=== PATIENT | female | born 1945 | race Caucasian/White ===

== ENCOUNTER 2016-07-05 16:10 | Emergency (ER) | payer MEDICARE, OTHER ==
[~2016-07-05] VITALS: Ht 165.1 cm; Wt 102.3 kg
[~2016-07-05 16:10] MED LIST: ALBU18HF INH; ESOM40CA41 PO; FERR325T39 PO; GLIM1TAB PO; INSU100V4 SUBQ; INSU200I SQ; LEVO100T97 PO; LORA10CA PO; LOSA100T29 PO; METF500T7 PO; OXYC5CAP4 PO; PRAM0.5T3 PO; TRAM50TA2 PO; [UNRECOGNIZED DRUG - CODE] MC
[2016-07-05 16:32] VITALS: BP 175/73; PULSE 78; RESP 20; O2SAT 96
[2016-07-05] MEDS ORDERED: diphenhydrAMINE 25 mg Capsule PO ONE (18:59)
[2016-07-05 19:32] VITALS: BP 161/53; PULSE 81; RESP 17; O2SAT 97
[2016-07-05 19:55] LABS: Magnesium 1.6 mg/dL (1.6-2.6)
[2016-07-05 20:03] LABS: Mean Corpuscular Hemoglobin 31.8 pg (27.0-35.0); Mean Corpuscular Volume 94.8 fL (81-100)
[2016-07-05 20:04] LABS: BASOPHILS % (AUTO) 1 % (0-3); EOSINOPHILS % (AUTO) 7 % (0-5); MONOCYTES % (AUTO) 11 % (4-12); NEUTROPHILS % (AUTO) 63 % (40-74); Platelet Count 126 bil/L (150-400)
--- NOTE | 2016-07-05 21:05 | ED.REPORT ---
HPI-Extremity Problem Lower Date of Service July 05, 2016 ED Provider: Mario Baeza PA-C Vanessa is a 71-year-old female with a history of hypothyroidism, type II diabetes, hypertension, bilateral total knee arthroplasty and DVT presenting with the chief complaint of right calf pain. Referred by her physical therapist have concern for DVT. Patient reports that she has had intermittent leg pain for quite some time but has become more constant and severe since she underwent a colonoscopy several days ago. Reports increased swelling in the right leg. Pain is located in her right calf sometimes radiate into her knee and hip. Admits to dyspnea on exertion which is at baseline for her asthma present for years. She denies tachycardia, heart palpitations, chest pain, hemoptysis, fever, chills, malaise. She does not use anticoagulants.. Nursing Notes Stated Complaint: POSS CLOT IN LEFT LEG Chief Complaint: Extremity Trauma Nursing Notes Reviewed: Yes Allergies: Coded Allergies: Wheat (Verified Allergy, Severe, rash, 10/16/15) gluten (Verified Allergy, Severe, Rash/ irritable bowel, 10/16/15) nadolol (Verified Allergy, Severe, WHEEZING/ASTHMA, 11/07/15) propoxyphene (Verified Allergy, Severe, 10/16/15) Hallucinations atorvastatin (Verified Allergy, Intermediate, myalgia, 11/06/15) gabapentin (Verified Allergy, Mild, dizziness, 11/06/15) clarithromycin (Verified Allergy, Unknown, 10/16/15) Pt unsure of reaction to this medication naproxen (Verified Allergy, Unknown, HALLUCINATES, 10/16/15) rofecoxib (Verified Allergy, Unknown, 10/16/15) Sulfa (Sulfonamide Antibiotics) (Verified Adverse Reaction, Intermediate, itching, 10/16/15) acetaminophen (Verified Adverse Reaction, Intermediate, insomnia, 10/16/15) meperidine (Verified Adverse Reaction, Intermediate, FEELS "BUGS", 10/16/15 ) morphine (Verified Adverse Reaction, Intermediate, FEELS "BUGS", 10/16/15) clindamycin (Verified Adverse Reaction, Mild, n/v, 11/06/15) lisinopril (Verified Adverse Reaction, Mild, cough, 11/06/15) pravastatin (Verified Adverse Reaction, Mild, leg and arm cramps, 11/06/15) pregabalin (Verified Adverse Reaction, Mild, weird dreams, 11/06/15) simvastatin (Verified Adverse Reaction, Mild, myalgia, 11/06/15) Scheduled Aloe Vera [place] [employer] Gel Extract (Aloe Vera) 5 Gm Powder 5 GM MC DAILY Esomeprazole Magnesium (Nexium) 40 Mg Capsule.dr 40 MG PO DAILY Ferrous Sulfate (Iron) 325 Mg Tablet 325 MG PO DAILY Glimepiride (Glimepiride) 1 Mg Tablet 1 MG PO DAILYAC Insulin Detemir (Levemir U100 Insulin Vial) 100 Unit/1 Ml Vial 75 UNIT SUBQ QPM- INSULIN Insulin Lispro (Humalog Kwikpen) 200 Unit/Ml (3 Ml) Insuln.pen 35 UNIT SQ TIDWM Levothyroxine (Synthroid) 100 Mcg Tablet 200 MCG PO DAILYAC Loratadine (Claritin) 10 Mg Capsule 10 MG PO DAILY Losartan Potassium (Losartan Potassium) 100 Mg Tablet 100 MG PO DAILY Metformin ER (Metformin ER) 500 Mg Tablet 500 MG PO BID Pramipexole Dihydrochloride (Mirapex) 0.5 Mg Tablet 0.5 MG PO HS Scheduled PRN Albuterol Sulfate (Ventolin HFA Inhaler) 200 Puff/18 Gm Inhaler 2 PUFF INH Q4 PRN PRN For Wheezing Tramadol (Tramadol) 50 Mg Tablet 50 MG PO Q4H PRN PRN For Pain oxyCODONE (oxyCODONE) 5 Mg Capsule 5-10 MG PO DAILY PRN PRN For Pain General Time Seen by MD: 19:12 Chief Complaint Leg injury right Past Medical History Past Medical History Notes: PCP: Dr. Ferrell Past Medical History 1. Hypothyroidism. 2. Type 2 diabetes mellitus. 3. Hypertension. 4. Recent abdominal abscess status post incision and drainage. 5. History of breast cancer status post mastectomy. 6. Pneumonia Reports: COPD, Cancer, Diabetes mellitus, Hypertension Past Surgical History 1. Left mastectomy for breast cancer and reconstruction with donor site from abdomen. 2. Knee replacement in 2009. 3. Laparoscopic cholecystectomy. 4. Abdominal abscess with incision and drainage in December 2010. FINAL DIAGNOSIS of Biopsies on 08/30/14: 1). Antrum, biopsy: A). reactive gastropathy alterations; antral mucosa. B). no H. pylori (immunostain). C). no intestinal metaplasia, dysplasia or malignancy. 2). Gastric body, biopsy: A). features consistent With fundic gland polyp. B). no H. pylori (immunostain). C). no intestinal metaplasia, dysplasia or malignancy. 3). Colon polyps x7, biopsy: A). tubular adenoma in 5/7 fragments. B). unremarkable colonic mucosa in 2/7 fragments. Smoking History Former Smoker Social History Alcohol Use: Denies alcohol use Review of Systems Review of Systems Note: Negative unless stated otherwise in history of present illness Physical Exam General: Well appearing, well developed, well nourished, no acute distress. Legs: Right calf diameter roughly 3 cm greater than the left. Right calf tenderness. 2+ pitting edema bilaterally. DP and PT pulses 2+ bilaterally. Right knee: Negative redness, swelling, heat. Full range of motion. Head: Atraumatic, normocephalic. Eyes: No scleral icterus or injection. No discharge. Vision grossly intact. ENT: Voice clear, hearing grossly intact. Respiratory: No respiratory distress, no increased work of breathing. Speaks in complete sentences. Skin: Warm and dry. Neurological: Grossly nonfocal. Psychological: alert and oriented. Speech appropriate, linear and logical. Behavior appropriate. Initial Vital Signs Vital Signs (First) Date Time Temp Pulse Resp B/P Pulse Ox O2 Delivery O2 Flow Rate FiO2 07/05/16 16:32 36.6 78 20 175/73 96 Room Air Initial VS: Vital signs abnormal (elevated blood pressure) Interpretation & Diagnostics Lab Results Interpretation Result Diagram: 07/05/16 1730 07/05/16 1730 Test 07/05/16 17:30 07/05/16 19:48 White Blood Count 5.7th/mm3 (3.8-10.1) Red Blood Count 3.68mil/mm3 (3.90-5.20) Hemoglobin 11.7g/dL (12.0-15.6) Hematocrit 34.9% (35.0-46.0) Mean Corpuscular Volume 94.8fL (81-100) Mean Corpuscular Hemoglobin 31.8pg (27.0-35.0) Mean Corpuscular Hemoglobin Concent 33.5% (32.0-37.0) Red Cell Distribution Width 14.6% (12.3-15.4) Platelet Count 126bil/L (150-400) Neutrophils (%) (Auto) 63% (40-74) Lymphocytes (%) (Auto) 18% (14-46) Monocytes (%) (Auto) 11% (4-12) Eosinophils (%) (Auto) 7% (0-5) Basophils (%) (Auto) 1% (0-3) Prothrombin Time 10.7sec (8.1-12.5) Prothromb Time International Ratio 1.00ratio Sodium Level 136mEq/L (134-144) Potassium Level 4.0mEq/L (3.5-5.2) Chloride Level 101mEq/L (97-108) Carbon Dioxide Level 21mmol/L (18-29) Blood Urea Nitrogen 14mg/dL (8-27) Creatinine 0.81mg/dL (0.57-1.00) Estimat Glomerular Filtration Rate 99mL/min (>59) Glucose Level 125mg/dL (60-99) Calcium Level 9.9mg/dL (8.5-10.1) Magnesium Level 1.6mg/dL (1.6-2.6) Total Bilirubin 0.8mg/dL (0.0-1.2) Aspartate Amino Transf (AST/SGOT) 68U/L (0-50) Alanine Aminotransferase (ALT/SGPT) 36U/L (0-32) Alkaline Phosphatase 110U/L (25-165) Pro-B-Type Natriuretic Peptide 27.39pg/mL (0-301) Total Protein 8.1g/dL (6.4-8.4) Albumin 3.2g/dL (3.4-5.0) Hold Urine Received (Received) Re-Eval/Medical Decision Med Decision/Clinical Course 70-year-old female referred by her physical therapist out of concern for a possible DVT due to right calf pain. History of intermittent pain in her leg which became more severe and steady since having a colonoscopy several days ago. Right leg swelling noted. Denies increased shortness of breath, hemoptysis, chest pain. History of bilateral total knee arthroplasty. Physical examination reveals right calf roughly 37 years larger than the left, 2 + pitting edema, calf tenderness. Her knee does not appear red, swollen, warm. She is afebrile. CBC and CMP reveal no leukocytosis. Other minor abnormalities are near baseline and not thought to be clinically significant. Ultrasound is negative for DVT. At this point I am reassured that her leg pain is unlikely to cause by an immediately dangerous conditions such as DVT or a septic joint. I believe she is stable and safe to be discharged. I discussed these findings with the patient who is eager to be discharged to home. Denies primary care follow-up, provided emergency return precautions. Patient verbalizes understanding of and consented to the plan. Discharge & Departure Impression: Primary Impression: Right leg pain Disposition: Home Discharge Condition All VS Reviewed: Yes Condition: Stable Additional Instructions: Evaluation in the emergency department for leg pain includes history, physical examination and ultrasound, all of which are reassuring that the pain in her leg is not caused by immediately dangerous conditions such as a blood clot or infection. I believe you are stable and safe to be discharged to home. Follow-up with your primary care provider to further address the swelling in your legs. Return to emergency department for new or worsening symptoms including increasing pain, swelling, shortness of breath, dizziness, cough, chest pain. Referrals: Harleen Ferrell MD EDSupervising Provider for APC: Aramis Kilgore DO copies to: Harleen Ferrell MD, Seth PA-C July 05, 2016 21:05
[2016-07-05 21:26] VITALS: BP 150/66; PULSE 80; RESP 16; O2SAT 98
--- NOTE | 2016-07-05 21:54 | DRSVH ---
PROCEDURE: US VEINOUS LEG DUPLEX UNILATERAL, RIGHT INDICATIONS: RIGHT LEG PAIN TECHNIQUE: Real-time imaging, as well as color and pulse Doppler interrogation, were performed of the lower extr emity deep veins from the inguinal ligament to the popliteal fossa. COMPARISON: None. FINDINGS: The deep veins are normally compressible, and free of intraluminal thrombus. Color and pu lse Doppler demonstrate normal phasic intraluminal flow. There is normal augmentation response to di stal compression maneuver. IMPRESSION: 1. No evidence of deep venous thrombosis in the right lower extremity. Dictated by: Janusz Alvarez M.D. on 07/05/2016 at 21:52 Approved by: Janusz Alvarez M.D. on 07/05/2016 at 21:52
[2016-07-19] MEDS ORDERED: INSU200I SQ (09:37)
[2016-07-19] MEDS ORDERED: ALBU90AE IH (09:37)
[2016-07-19] MEDS ORDERED: TOLT2CAP8 PO (09:37)
[2016-07-19] MEDS ORDERED: DIPH25CA6 PO (09:37)
[2016-07-19] MEDS ORDERED: INSU100I13 SUBQ (09:37)
[2016-07-19] MEDS ORDERED: LEVO25TA5 PO (09:37)
[2016-07-19] MEDS ORDERED: HYDR50TA76 PO (09:37)
[2016-07-19] MEDS ORDERED: LEVO200T6 PO (09:37)
== END 2016-07-05 21:27 | disposition home or self-care (01) ==
LOC: SED 16:10
DX: M79.604 Pain in right leg (principal); I10 Essential (primary) hypertension; E11.9 Type 2 diabetes mellitus without complications; J44.9 Chronic obstructive pulmonary disease, unspecified; E03.9 Hypothyroidism, unspecified; Z79.4 Long term (current) use of insulin; Z79.84 Long term (current) use of oral hypoglycemic drugs; Z87.891 Personal history of nicotine dependence; Z88.1 Allergy status to other antibiotic agents; Z88.2 Allergy status to sulfonamides; Z88.5 Allergy status to narcotic agent; Z88.8 Allergy status to other drugs, medicaments and biological substances; Z91.018 Allergy to other foods

== ENCOUNTER 2016-11-19 10:22 | Inpatient (IN) | payer MEDICARE, OTHER ==
[~2016-11-19] VITALS: Ht 165.1 cm; Wt 107.3 kg
[2016-11-19] VITALS (8 sets, daily range): BP systolic 127–167; BP diastolic 57–68; PULSE 74–87; RESP 17–20; O2SAT 95–98
--- NOTE | 2016-11-19 10:16 | ED.REPORT ---
HPI-Stroke / CVA Nov 19, 2016 ED Provider: Faizan Carter Patient is a 71 year old female with a hx of HTN, breast cancer in remission, COPD, DVT, and DM who presents to the ED via EMS s/p she was found to be confused this morning by her . Per , pt ambulated independently to the kitchen this morning and was found with an increased tremor, generalized weakness, and was unable to answer questions or follow simple directions. Her last known normal is between [id number] last night. Per family, she did not experience a fall or obtain any injuries. Upon interview, pt complains of chest pain but denies SOB. Nursing Notes Stated Complaint: STROKE Nursing Notes Reviewed: Yes Allergies: Coded Allergies: Wheat (Verified Allergy, Severe, rash, 11/19/16) gluten (Verified Allergy, Severe, Rash/ irritable bowel, 11/19/16) nadolol (Verified Allergy, Severe, WHEEZING/ASTHMA, 11/19/16) propoxyphene (Verified Allergy, Severe, 11/19/16) Hallucinations atorvastatin (Verified Allergy, Intermediate, myalgia, 11/19/16) gabapentin (Verified Allergy, Mild, dizziness, 11/19/16) clarithromycin (Verified Allergy, Unknown, 11/19/16) Pt unsure of reaction to this medication naproxen (Verified Allergy, Unknown, HALLUCINATES, 11/19/16) rofecoxib (Verified Allergy, Unknown, 11/19/16) Sulfa (Sulfonamide Antibiotics) (Verified Adverse Reaction, Intermediate, itching, 11/19/16) acetaminophen (Verified Adverse Reaction, Intermediate, insomnia, 11/19/16) meperidine (Verified Adverse Reaction, Intermediate, FEELS "BUGS", 11/19/16 ) morphine (Verified Adverse Reaction, Intermediate, FEELS "BUGS", 11/19/16) clindamycin (Verified Adverse Reaction, Mild, n/v, 11/19/16) lisinopril (Verified Adverse Reaction, Mild, cough, 11/19/16) pravastatin (Verified Adverse Reaction, Mild, leg and arm cramps, 11/19/16) pregabalin (Verified Adverse Reaction, Mild, weird dreams, 11/19/16) simvastatin (Verified Adverse Reaction, Mild, myalgia, 11/19/16) Scheduled Aspirin (Aspirin) 81 Mg Tablet 81 MG PO BID (Reported) Esomeprazole Magnesium (Nexium) 40 Mg Capsule.dr 40 MG PO DAILY (Reported) Insulin Glargine (Lantus U100 Solostar Insulin Pen) 100 Unit/1 Ml Insuln.pen 80 UNIT SUBQ DAILY (Reported) Insulin Lispro (Humalog Kwikpen) 200 Unit/Ml (3 Ml) Insuln.pen 35 UNIT SQ TIDWM (Reported) Levothyroxine (Levothyroxine) 200 Mcg Tablet 200 MCG PO DAILY (Reported) In addition to 25mcg for a total of 225 mcg Levothyroxine (Levothyroxine) 25 Mcg Tablet 25 MCG PO DAILY (Reported) In addition to 200mcg for a total of 225 mcg Losartan Potassium (Losartan Potassium) 100 Mg Tablet 100 MG PO DAILY (Reported ) Pramipexole Dihydrochloride (Mirapex) 0.5 Mg Tablet 0.5-1 MG PO HS (Reported) Scheduled PRN Albuterol Sulfate (Proair Respiclick) 90 Mcg Aer.pow.ba 2 PUFFS IH Q4-6Hrs PRN PRN For Shortness of Breath (Reported) diphenhydrAMINE HCl (Benadryl) 25 Mg Capsule 25 MG PO HS PRN PRN (Reported) hydrOXYzine Hcl (HydrOXYzine Hcl) 25 Mg Tablet 25-50 MG PO Q4Hrs PRN PRN For Itching (Reported) oxyCODONE (oxyCODONE) 5 Mg Capsule 5-10 MG PO Q4Hrs PRN PRN For Pain (Reported) General Time Seen by Provider: 10:39 Chief Complaint Confusion Hx Obtained From: Patient, Spouse, Daughter Arrived By: Ambulance Time last known well [id number] on 11/18 Sudden in Onset?: Yes Context of Onset: During sleep Symptom Duration: Since onset Progression Since Onset: Unchanged Context: Immunizations Unknown Risk Factors )( TPA Administration/Criteria Stroke Thrombolytic Therapy : TPA Considered: Yes Neurologist Contacted: No TPA Administered Intravenously: No, not indicated (No lateralizing neurologic deficits, stroke not suspected dx ) NIH Stroke Scale Level of Consciousness: Not alert, arousable (1) Ask Month & Age: 0 questions right (2) Open/Close Eyes/Hand Senior Research Project Manager: Performs 0 tasks (2) Horizontal EO Movements: None (0) Facial Palsy: Normal symmetry (0) Right Arm Motor Drift (10s): Drift, hits bed (2) Left Arm Motor Drift (10s): Some effort v gravity (2) Right Leg Motor Drift (5s): Some effort v gravity (2) Left Leg Motor Drift (5s): Some effort v gravity (2) Limb Ataxia FNF/Heel-Lovett: No ataxia (0) Language Aphasia: Loss fluency ID matls (1) Dysarthria: Slurring intelligible (1) NIHSS Score: 15 Time NIHSS Performed: 10:46 Date NIHSS Performed: Nov 19, 2016 )( CVA Risk Stratification Age >60 Diabetes mellitus Hypertension Risk factors reviewed Past Medical History Past Medical History Notes: PCP: Dr. Ferrell Past Medical History 1. Hypothyroidism. 2. Type 2 diabetes mellitus. 3. Hypertension. 4. Recent abdominal abscess status post incision and drainage. 5. History of breast cancer status post mastectomy. 6. Pneumonia 7. DVT 8. MRSA 9. Non-alcoholic cirrhosis 10. DJD Reports: Asthma, COPD, Cancer, Diabetes mellitus, GERD, Hypertension Past Surgical History 1. Left mastectomy for breast cancer and reconstruction with donor site from abdomen. 2. Knee replacement x2 3. Laparoscopic cholecystectomy. 4. Abdominal abscess with incision and drainage in December 2010. FINAL DIAGNOSIS of Biopsies on 08/30/14: 1). Antrum, biopsy: A). reactive gastropathy alterations; antral mucosa. B). no H. pylori (immunostain). C). no intestinal metaplasia, dysplasia or malignancy. 2). Gastric body, biopsy: A). features consistent With fundic gland polyp. B). no H. pylori (immunostain). C). no intestinal metaplasia, dysplasia or malignancy. 3). Colon polyps x7, biopsy: A). tubular adenoma in 5/7 fragments. B). unremarkable colonic mucosa in 2/7 fragments. Reports: Cataract surgery, Hysterectomy Smoking History Former Smoker Social History Alcohol Use: Denies alcohol use Other Social History: Good social support Ambulatory Status Cane Review of Systems Constitutional: Reports: Weakness - generalized Respiratory: Denies: Shortness of breath Cardiovascular: Reports: Chest pain Neurologic: Reports: Confusion, Problem walking, Shaking Complete sys rev & neg: except as marked. Physical Exam Initial Vital Signs Vital Signs (First) Date Time Temp Pulse Resp B/P Pulse Ox O2 Delivery O2 Flow Rate FiO2 11/19/16 10:39 35.9 82 19 154/62 98 Room Air Initial VS: Reviewed, Vital signs normal General/Constitutional: Awake, Alert Head / Eyes: Atraumatic, Normocephalic, EOMI Neck: Supple Respiratory / Chest: Atraumatic, Breath sounds NL, Breath sounds = bilat, No respiratory distress Cardiovascular: Heart rate NL Mental Status: Positive: Confused Delirious, disoriented, dysconjugate gaze, face symmetric, symmetric profound weakness in upper and lower extremities Neuro otherwise non-focal Abdomen: Atraumatic, Soft, Non-tender Upper Extremity / MS: Atraumatic Lower Extremity / Pelvis / MS: Atraumatic Skin: Atraumatic, Color NL, No rash, Warm, Dry Interpretation & Diagnostics Lab Results Interpretation Result Diagram: 11/19/16 1030 11/19/16 1030 Test 11/19/16 10:30 11/19/16 11:41 11/19/16 11:50 White Blood Count 6.9th/mm3 (3.8-10.1) Red Blood Count 3.67mil/mm3 (3.90-5.20) Hemoglobin 11.5g/dL (12.0-15.6) Hematocrit 34.4% (35.0-46.0) Mean Corpuscular Volume 93.7fL (81-100) Mean Corpuscular Hemoglobin 31.3pg (27.0-35.0) Mean Corpuscular Hemoglobin Concent 33.4% (32.0-37.0) Red Cell Distribution Width 14.8% (12.3-15.4) Platelet Count 142bil/L (150-400) Neutrophils (%) (Auto) 66.4% (40-74) Lymphocytes (%) (Auto) 19.9% (14-46) Monocytes (%) (Auto) 10.4% (4-12) Eosinophils (%) (Auto) 2.5% (0-5) Basophils (%) (Auto) 0.7% (0-3) Erythrocyte Sedimentation Rate 68mm/hr (0-40) Prothrombin Time 10.8sec (8.1-12.5) Prothromb Time International Ratio 1.01ratio Activated Partial Thromboplast Time 26.0sec (22.8-33.0) Sodium Level 136mEq/L (134-144) Potassium Level 4.3mEq/L (3.5-5.2) Chloride Level 99mEq/L (97-108) Carbon Dioxide Level 22mmol/L (18-29) Blood Urea Nitrogen 24mg/dL (8-27) Creatinine 1.18mg/dL (0.57-1.00) Estimat Glomerular Filtration Rate 64mL/min (>59) Glucose Level 147mg/dL (60-99) Calcium Level 9.3mg/dL (8.5-10.1) Phosphorus Level 3.5mg/dL (2.5-4.9) Magnesium Level 1.8mg/dL (1.6-2.6) Total Bilirubin 0.7mg/dL (0.0-1.2) Aspartate Amino Transf (AST/SGOT) 47U/L (0-50) Alanine Aminotransferase (ALT/SGPT) 31U/L (0-32) Alkaline Phosphatase 100U/L (25-165) Troponin T 0.026ug/L (0.0-0.011) Pro-B-Type Natriuretic Peptide 14.57pg/mL (0-301) Total Protein 8.4g/dL (6.4-8.4) Albumin 3.4g/dL (3.4-5.0) Lipase 110U/L (13-60) Procalcitonin 0.14ng/mL (0.00-0.08) Urine Color Yellow (YELLOW) Urine Appearance Cloudy (CLEAR,HAZY) Urine pH 7.0 (5.0-8.0) Urine Specific Forbes 1.015 (1.003-1.035) Urine Protein Tracemg/dL (NEG,TRACE) Urine Glucose (UA) Negativemg/dL (NEGATIVE) Urine Ketones Negativemg/dL (NEGATIVE) Urine Occult Blood Negative (NEGATIVE) Urine Nitrite Positive (NEGATIVE) Urine Bilirubin Negative (NEGATIVE) Urine Urobilinogen 4.0mg/dL (NORMAL) Urine Leukocyte Esterase Negative (NEGATIVE) Urine RBC 0-2/hpf (0-2) Urine WBC 0-5/hpf (0-5) Urine Epithelial Cells Occasional/hpf (NONE-MOD) Urine Crystals None seen (NONE SEEN) Urine Bacteria Many/hpf (NONE-FEW) Urine Hyaline Casts None/lpf (NONE) Urine Granular Casts None seen (NONE SEEN) Urine Waxy Casts None seen (NONE SEEN) Urine Red Blood Cell Casts None seen (NONE SEEN) Urine White Blood Cell Casts None seen (NONE SEEN) Urine Mucus None seen (None Seen) Urine Trichomonas None seen (NONE SEEN) Urine Yeast None (NONE SEEN) Urinalysis Comment None Urine Culture Reflexed Indicated Lactic Acid Level 1.2mmol/L (0.4-2.0) ECG Interpretation ECG Interpretation: Sinus rate 84 LBBB, old Time: 10:56 Interpreted by: ED physician X-Ray Chest Interpretation Chest Xray Interpretation: IMPRESSION: Mild acute exacerbation of chronic CHF pattern. Dictated by: Ketan Weiss M.D. on 11/19/2016 at 12:54 Approved by: Ketan Weiss M.D. on 11/19/2016 at 12:54 View: Portable, 1 view Interpretation / Wet Read by: Interpret - Radiologist CT Head Interpretation IMPRESSION: No acute disease, no contraindication to TPA administration found. This information was personally called to the emergency room at 10:47 a.m. This study fulfills neurological imaging criteria for inclusion or exclusion of acute stroke therapies based on available published neurological guidelines. Dictated by: Ketan Weiss M.D. on 11/19/2016 at 10:44 Approved by: Ketan Weiss M.D. on 11/19/2016 at 10:54 Study: Head CT no contrast Interpretation / Wet Read by: Interpret - Radiologist, Discussed w radiologist Re-Eval/Medical Decision Med Decision/Clinical Course Not clear to me what the problem is here. Initially was received as "code stroke" but after initial assessment I thought this was not the most likely dx. based on the fact that her weakness was not lateralizing at all and diffuse and inconsistent. Initial w/up was not very helpful and I thought LP might be in order but the patient refused this. Will admit for obs to further elucidate the etiology of the sx. Re-Evaluation/Progress : Time of Eval: 13:29 )( Re-Eval Neurologic Exam: Alert Re-Evaluation/Progress Note: Rechecked pt who is becoming slightly more oriented. She denies pain. Discussed plan for LP. Patient denies LP. Spouse reports she has had a poor experience with a LP in the past. Discussed plan for admission. Patient understands and agrees with plan. All questions addressed at this time. Consultation : Referral / Consult Name: Castro Simpson MD Consulted With: Hospitalist Manager Willow: Accepts admit Counseled Regarding: Diagnosis, Lab results, Need for admission Patient Discharge & Departure Impression: Primary Impression: Acute delirium Disposition: ADMITTED TO HOSPITAL Discharge Condition All VS Reviewed: Yes Condition: Stable Referrals: Harleen Ferrell MD (PCP) Scribe Attestation Portions of this note were transcribed by Nickie Deshpande. I, Dr. Carter personally performed the history, physical exam and medical decision-making; I reviewed and confirmed the accuracy of the information in the transcribed note. Signed by: Chuck Lu, 11/19/16 copies to: Harleen Ferrell MD, Kirk H MD Nov 19, 2016 10:16 NICKIE DESHPANDE Nov 19, 2016 10:52
[~2016-11-19 10:22] MED LIST changes: -ALBU18HF INH; +ALBU90AE IH; +DIPH25CA6 PO; -FERR325T39 PO; -GLIM1TAB PO; +HYDR50TA76 PO; +INSU100I13 SUBQ; -INSU100V4 SUBQ; -LEVO100T97 PO; +LEVO200T6 PO; +LEVO25TA5 PO; -METF500T7 PO; +TOLT2CAP8 PO; -[UNRECOGNIZED DRUG - CODE] MC
[2016-11-19 10:33] LABS: BASOPHILS % (AUTO) 0.7 % (0-3); EOSINOPHILS % (AUTO) 2.5 % (0-5); MONOCYTES % (AUTO) 10.4 % (4-12); Mean Corpuscular Hemoglobin 31.3 pg (27.0-35.0); Mean Corpuscular Volume 93.7 fL (81-100); NEUTROPHILS % (AUTO) 66.4 % (40-74); Platelet Count 142 bil/L (150-400)
[2016-11-19 10:50] LABS: INR 1.01 ratio
--- NOTE | 2016-11-19 10:56 | DRSVH ---
PROCEDURE: CT BRAIN TPA INDICATIONS: Stroke TECHNIQUE: Noncontrast 4.5 mm thick angled axial sections acquired from the foramen magnum to the vertex, with c oronal reformats. COMPARISON: None. FINDINGS: Image quality: Excellent. CSF spaces: Basal cisterns are patent. No extra-axial fluid collections. The ventricles are symmet jane in size and shape. Brain: No intracranial bleeds or masses. There is cerebral volume loss for age, with resultant vent ricular and sulcal prominence. There are periventricular and deep white matter chronic small vessel ischemic changes. There is intracranial internal carotid artery atherosclerosis. Skull and face: Calvarium and visualized facial bones appear intact, without suspicious lesions. Sinuses: Visualized sinuses and mastoids are clear. IMPRESSION: No acute disease, no contraindication to TPA administration found. This information was personally called to the emergency room at 10:47 a.m. This study fulfills neurological imaging criteria for inclusion or exclusion of acute stroke therapie s based on available published neurological guidelines. Dictated by: Ketan Weiss M.D. on 11/19/2016 at 10:44 Approved by: Ketan Weiss M.D. on 11/19/2016 at 10:54 [facility] [place] hours and to susan wax the distal
--- NOTE | 2016-11-19 11:17 | NUR ---
ST attempted to see pt, pt unable to rouse with max cues, ST to reattempt this PM if able.
[2016-11-19] MEDS ORDERED: 0.9% Sodium Chloride 1,000 ML IV ONE (11:21)
[2016-11-19 11:31] LABS: TROPONIN T 0.026 ug/L (0.0-0.011)
[2016-11-19 12:13] LABS: Magnesium 1.8 mg/dL (1.6-2.6); Phosphorus 3.5 mg/dL (2.5-4.9)
--- NOTE | 2016-11-19 12:57 | DRSVH ---
PROCEDURE: X-RAY CHEST ONE VIEW, PORTABLE ([id number]) INDICATIONS: altered LOC TECHNIQUE: One view of the chest was acquired. COMPARISON: [facility], CR, XR CHEST 2VW, 05/16/2016, 15:31. [facility], CR , XR CHEST 2VW, 10/16/2015, 16:24. FINDINGS: Surgical changes and devices: None. Lungs and pleura: No pleural effusions or pneumothorax. Lungs are abnormal with mild pulmonary kasia a and reduced inspiration. Mediastinum: Mediastinal contours appear normal. Heart size is mildly enlarged. Bones and chest wall: No suspicious bony lesions. Overlying soft tissues appear unremarkable. IMPRESSION: Mild acute exacerbation of chronic CHF pattern. Dictated by: Ketan Weiss M.D. on 11/19/2016 at 12:54 Approved by: Ketan Weiss M.D. on 11/19/2016 at 12:54
[2016-11-19 13:27] LABS: APPEARANCE,URINE CLOUDY (CLEAR,HAZY); COLOR,URINE YELLOW (YELLOW); OCCULT BLOOD,URINE NEGATIVE (NEGATIVE)
[2016-11-19] MEDS ORDERED: ASPI-973 PO (14:36)
[2016-11-19] MEDS ORDERED: INSU100I25 SQ (14:36)
[2016-11-19] MEDS ORDERED: HYDR-656 PO (14:36)
[2016-11-19] MEDS ORDERED: Alum-Mag Hydrox-Simeth 30 mL Suspension PO PRN (15:40)
[2016-11-19] MEDS ORDERED: Polyethylene Glycol (PEG) 17 Gm Powder PO PRN (15:40)
[2016-11-19] MEDS ORDERED: Labetalol 5 mg/mL 20 mL Inj IVPUSH PRN (15:40)
--- NOTE | 2016-11-19 15:50 | NUR ---
Evaluation completed. Please go to "Notes" then click on "Assessments and Notes" (bottom left corner of screen). Then select appropriate discipline tab on top of screen.
--- NOTE | 2016-11-19 18:16 | NUR ---
ADMIT Admitting a71/F into room 3004 after 1600 following report from [employer], ED RN. Pt arrived via stretcher, transferred to bed via slide board. Pt A&Ox2, pleasantly forgetful. Introduced to staff/bed/call light controls. Pt on RA, denies any SOB/distress at this time. IV SL in R AC, flushing without issue. Pt passed swallow eval, regular diet ordered with 1:1 feed. Pt up to BSC with 1 person assist/FWW, tolerating activity fair. and dtr at bedside. Denies any pain/discomfort. R FA BP due to a L sided mastectomy. Bed in lowest, locked position and call light in reach.
--- NOTE | 2016-11-19 18:48 | PCM.HPMED ---
Subjective Date of Service Nov 19, 2016 Primary Provider: Admitting Physician: Castro Simpson MD Primary Care Physician: Silver Hamm MD Attending Physician: Castro Simpson MD Admit Status: From the Emergency Department, 23-Hour Observation, Admit to Green Team Chief Complaint: Encephalopathy. . History of Present Illness: Vanessa Short is a 71-year-old female with past medical history significant for hypertension, hyperlipidemia, Winter, and diabetes mellitus type II, insulin using who presented to [facility] emergency Department via EMS due to confusion reported by her . Per the patient's , the patient is usually able to ambulate with her walker but was unable to do so this morning as she was confused. He reports that she was unable to answer questions or follow simple directions and kept repeating herself. She had increased tremor, generalized weakness, and mildly slurred speech. She did not have any focal weakness or facial droop. The patient reports that she took her pramipexole last night and went to bed with her last known normal is between [id number] last night. Per family, she did not experience a fall or obtain any injuries. She reports that she had headache this morning, nausea, and indigestion. She denies neck pain or stiffness, chest pain, shortness of breath, abdominal pain, nausea, vomiting, diarrhea or constipation. She did endorse dysuria and chronic urinary incontinence. Vital signs in the ER: Temperature 35.9. Pulse 82. Respiratory rate 19. Blood pressure 154/62. Pulse ox 90% on room air. She received 1 L of NS and ED. PCP is Dr. Silver Hamm. . Review of Systems: A comprehensive review of systems was conducted with the patient and found to be negative except as above in the History of Present Illness. . Allergies Coded Allergies: Wheat (Verified Allergy, Severe, rash, 11/19/16) gluten (Verified Allergy, Severe, Rash/ irritable bowel, 11/19/16) nadolol (Verified Allergy, Severe, WHEEZING/ASTHMA, 11/19/16) propoxyphene (Verified Allergy, Severe, 11/19/16) Hallucinations atorvastatin (Verified Allergy, Intermediate, myalgia, 11/19/16) gabapentin (Verified Allergy, Mild, dizziness, 11/19/16) clarithromycin (Verified Allergy, Unknown, 11/19/16) Pt unsure of reaction to this medication naproxen (Verified Allergy, Unknown, HALLUCINATES, 11/19/16) rofecoxib (Verified Allergy, Unknown, 11/19/16) Sulfa (Sulfonamide Antibiotics) (Verified Adverse Reaction, Intermediate, itching, 11/19/16) acetaminophen (Verified Adverse Reaction, Intermediate, insomnia, 11/19/16) meperidine (Verified Adverse Reaction, Intermediate, FEELS "BUGS", 11/19/16 ) morphine (Verified Adverse Reaction, Intermediate, FEELS "BUGS", 11/19/16) clindamycin (Verified Adverse Reaction, Mild, n/v, 11/19/16) lisinopril (Verified Adverse Reaction, Mild, cough, 11/19/16) pravastatin (Verified Adverse Reaction, Mild, leg and arm cramps, 11/19/16) pregabalin (Verified Adverse Reaction, Mild, weird dreams, 11/19/16) simvastatin (Verified Adverse Reaction, Mild, myalgia, 11/19/16) Home Medications Albuterol 2 puffs every 4 hours as needed for shortness of breath. Aspirin 81 mg daily. Benadryl 25 mg daily at bedtime as needed for insomnia. Hydroxyzine 25-50 mg every 4 hours as needed for itching. Nexium 40 mg daily. Lantus 80 units subcutaneous daily. Lispro 35 units subcutaneous 3 times a day with meals. Levothyroxine 225 g daily. Losartan 100 mg daily. Oxycodone 5-10 mg every 4 hours as needed for pain. Pramipexole 0.5-1 mg daily at bedtime. . PMH 1. Hypothyroidism. 2. Diabetes mellitus type II, insulin using. 3. Hypertension. 4. Abdominal abscess status post incision and drainage. 5. History of breast cancer status post left mastectomy. 6. History of pneumonia. 7. History of DVT. 8. History of MRSA . 9. Non-alcoholic cirrhosis. 10. DJD. 11. Asthma/ COPD. 12. GERD. 13. Restless leg syndrome. 14. Osteoarthritis. . Surgical History 1. Left mastectomy for breast cancer and reconstruction with donor site from abdomen. 2. Knee replacement x2 3. Laparoscopic cholecystectomy. 4. Abdominal abscess with incision and drainage in December 2010. 5. Bilateral cataract extraction. 6. Hysterectomy with bilateral salpingo-oophorectomy. 7. Tonsillectomy. 8. Appendectomy. 9. Cholecystectomy. . Family History Mother who had dementia and of renal failure. Father who is alive at 94 years old and healthy. Sister who had CVA but otherwise is healthy. . Social History Hx Alcohol Use: No Hx Substance Use: Yes (marijuana CBD capsules once in awhile) Hx Tobacco Use: Yes (1 ppd QUIT 2007 (smoked for at least 15 years)) Smoking Status: Former Smoker Additional Information The patient has been for 23 years. She has 6 children total, 4 biological children who are all healthy. She worked formerly as a gonzales. . Exam Vital Signs Vital Sign - Last Date Time Temp Pulse Resp B/P Pulse Ox O2 Delivery O2 Flow Rate FiO2 11/19/16 14:30 76 18 153/57 95 Room Air 11/19/16 11:32 35.8 Exam General: Elderly female sitting in bed and in no acute distress, tremulous well- developed, well-nourished, mild confusion. HEENT: Normocephalic, atraumatic. External ears without defect. Pupils equal, round, and reactive to light. Anicteric sclerae, moist conjunctivae, and no lid lag. Oropharynx free of erythema and cobble stoning. His membranes dry. Neck: Supple with full range of motion. No lymphadenopathy or thyromegaly. Cardiovascular: Regular rate and rhythm without murmurs, rubs, or gallops appreciated Pulmonary: Clear to auscultation bilaterally without crackles, wheezes, or rhonchi. Normal respiratory effort with no use of accessory muscles. Abdomen: Soft, nontender, nondistended, bowel sounds present. No hepatosplenomegaly or masses appreciated. Extremities: No clubbing or cyanosis. Trace edema to pretibial area bilaterally. Skin: Normal temperature, turgor, and texture; no rash, ulcers, or subcutaneous nodules appreciated. Neurological: Cranial nerves grossly intact. Generalized weakness without focal neurological deficit. Reflexes, coordination, and sensory function within normal limits. Known gait impairment and uses a cane or FWW. Psychiatric: Normal mood and affect. Alert and oriented to person, place, and time. . Lab and Diagnostics Labs Item Value Date Time Lactic Acid Level 1.2 mmol/L 11/19/16 1150 Item Value Date Time Phosphorus Level 3.5 mg/dL 11/19/16 1030 Magnesium Level 1.8 mg/dL 11/19/16 1030 Pro-B-Type Natriuretic Peptide 14.57 pg/mL 11/19/16 1030 Triglycerides Level 113 mg/dL 11/19/16 1030 Cholesterol Level 243 mg/dL H 11/19/16 1030 LDL Cholesterol, Calculated 154.400 mg/dL H 11/19/16 1030 VLDL Cholesterol 22.600 mg/dL 11/19/16 1030 HDL Cholesterol 66 mg/dL 11/19/16 1030 Cholesterol/HDL Ratio 3.68 11/19/16 1030 Lipase 110 U/L H 11/19/16 1030 Procalcitonin 0.14 ng/mL H 11/19/16 1030 Item Value Date Time Calcium Level 9.3 mg/dL 11/19/16 1030 Total Bilirubin 0.7 mg/dL 11/19/16 1030 Aspartate Amino Transf (AST/SGOT) 47 U/L 11/19/16 1030 Alanine Aminotransferase (ALT/SGPT) 31 U/L 11/19/16 1030 Alkaline Phosphatase 100 U/L 11/19/16 1030 Troponin T 0.026 ug/L H 11/19/16 1030 Total Protein 8.4 g/dL 11/19/16 1030 Albumin 3.4 g/dL 11/19/16 1030 Result Diagram: 11/19/16 1030 11/19/16 1030 Microbiology Blood cultures 2 pending. Urine culture pending. . X-Rays, CTs and MRIs X-RAY CHEST ONE VIEW, PORTABLE IMPRESSION: Mild acute exacerbation of chronic CHF pattern. Dictated by: Ketan Weiss M.D. on 11/19/2016 at 12:54 CT BRAIN TPA IMPRESSION: No acute disease, no contraindication to TPA administration found. This information was personally called to the emergency room at 10:47 a.m. This study fulfills neurological imaging criteria for inclusion or exclusion of acute stroke therapies based on available published neurological guidelines. Dictated by: Ketan Weiss M.D. on 11/19/2016 at 10:44 . 12-lead ECG EKG: Sinus rhythm, heart rate 84, left axis, prolonged QTC of 504 ms otherwise normal intervals, poor R-wave progression, left bundle branch block, peaked T waves in leads V3 and V4, no pathological Q waves or acute ischemic changes such as ST elevation or depression. . Assessment & Plan Vanessa Short is a 71-year-old female with past medical history significant for hypertension, hyperlipidemia, Winter, and diabetes mellitus type II, insulin using who presented to [facility] emergency Department via EMS due to confusion reported by her . 1. Acute encephalopathy, present on admission. Active. - The patient presented with increased tremor, generalized weakness, and mildly slurred speech. - NIHSS was 15 in the ED. - Likely due to hepatic encephalopathy due to advanced WINTER.Differential diagnosis includes: Probable TIA versus metabolic encephalopathy such as hepatic encephalopathy from nonalcoholic cirrhosis and decreased ammonia clearance. - CT brain did not reveal any acute intracranial abnormalities, as above. - Ordered MRI stroke protocol, pending. - Ordered urinalysis which does not grossly look infected but urine culture pending. - Lumbar puncture was refused by patient due to previous adverse experience and spinal headache. - Ordered ammonia level 205.started lactulose - Ordered a urine drug screen and alcohol level, negative. - Held Benadryl 25 mg daily at bedtime as needed for insomnia and hydroxyzine 25 -50 mg every 4 hours as needed for itching due to TALENT ADVISOR effect. 2. Acute kidney injury, present on admission. Active. - Likely secondary to prerenal azotemia from dehydration. - Baseline creatinine 0.9. Initial creatinine 1.18. - Avoid nephrotoxic agents. - Received 1 L of NS in the ED. Ordered IV fluid hydration with NS at 100 mL/ hr. - Continue to monitor creatinine daily. Chronic problems: 3. Hypothyroidism, present on admission. Stable. - Continue levothyroxine 225 g daily. 4. Diabetes mellitus type II, insulin using, with complication of diabetic peripheral neuropathy present on admission. Stable. - Hemoglobin A1c pending. - Continue Lantus 80 units subcutaneous daily. - Ordered high-dose correctional scale insulin. - Ordered carbohydrate consistent/heart healthy diet. 5. Hypertension, present on admission. Stable. - Continue losartan 100 mg daily. 6. Non-alcoholic cirrhosis, present on admission. Stable. - Continue to monitor liver function daily. - Ammonia level ordered and pending. 7. Asthma/ COPD, present on admission. Stable. - Ordered AccuNeb every 4 hours as needed for shortness of breath 8. GERD, present on admission. Stable. - Continue Protonix 40 mg daily. 9. History of DVT - Continue aspirin 81 mg daily. 10. Restless leg syndrome, present on admission. Stable. - Continue Pramipexole 0.5-1 mg daily at bedtime. 11. Osteoarthritis, present on admission. Stable. - Will hold oxycodone 5-10 mg every 4 hours as needed for pain due to encephalopathy. PRN antiemetics: Zofran and Maalox. PRN bowel regimen: Senna and MiraLAX. PRN analgesics: Tylenol. Patient is admitted under observation status with expected length of stay less than 2 midnights due to severity of presenting symptoms, risk of adverse event, and complexity of treatment plan. . VTE Prophylaxis: Sub-Q Heparin (Unfractionated) Resuscitation Status: CPR: Attempt Resuscitation Attending Statement patient seen independently,discussed with resident Dr Morse .I agree with history ,exam,assessment and plan copies to: Manpreet Ingram MD; Silver Hamm MD, [place] M DO Nov 19, 2016 16:34 Castro Simpson MD Nov 19, 2016 21:24
[2016-11-19] MEDS ORDERED: Glucose 40% Oral Gel 15 Gm Tube PO PRN (18:50)
[2016-11-19] MEDS ORDERED: Dextrose 10% 250 ML IV PRN (19:10)
[2016-11-19] MEDS: 0.9% Sodium Chloride 1,000 ML IV SCH (20:17)
[2016-11-19] MEDS ORDERED: Lactulose 20 Gm/30 mL 30 mL Syrup PO ONE (20:20)
[2016-11-19] MEDS: Ondansetron 2 mg/mL 2 mL Inj IVPUSH PRN (21:41)
[2016-11-19] MEDS: Insulin LISPRO 300 Unit/3 mL Inj SUBQ SCH (21:48)
[2016-11-20] VITALS (9 sets, daily range): BP systolic 92–173; BP diastolic 50–71; PULSE 71–83; RESP 18–20; O2SAT 95–98
--- NOTE | 2016-11-20 05:02 | NUR ---
PT ACTIVITY/NEURO Pt has been up to [facility], 2 person assist w/ FWW and gait belt. Pt has had some ataxia during shift--pts gait unsteady, pt has difficulty feeding self and grasping objects. Pt has remained alert & oriented, able to follow instructions, needing cueing at times. Continue to monitor. Call light in reach. Bed alarm on. Intentional rounding.
[2016-11-20 05:27] LABS: BASOPHILS % (AUTO) 0.8 % (0-3); EOSINOPHILS % (AUTO) 3.3 % (0-5); MONOCYTES % (AUTO) 10.8 % (4-12); Mean Corpuscular Hemoglobin 31.7 pg (27.0-35.0); Mean Corpuscular Volume 95.8 fL (81-100); NEUTROPHILS % (AUTO) 64.7 % (40-74); Platelet Count 113 bil/L (150-400)
--- NOTE | 2016-11-20 06:10 | NUR ---
TELEMETRY Approx 0600, cafeteria monitor called RN to inform that pt had 4 sec of PSVT, HR up to 159. Pt was asleep, no complaints. Noc hospitalist ed-paged w/ info. Continue to monitor.
[2016-11-20] MEDS: Insulin LISPRO 300 Unit/3 mL Inj SUBQ SCH ×4 (08:00→21:02)
[2016-11-20] MEDS: 0.9% Sodium Chloride 1,000 ML IV SCH (08:09)
[2016-11-20] MEDS ORDERED: LEVOTHYROXINE 200 MCG PO SCH (08:30)
[2016-11-20] MEDS: Insulin GLARgine 100 Unit/mL Syringe SUBQ SCH (10:07)
[2016-11-20] MEDS: Pantoprazole 40 mg ER24 Tablet PO SCH (10:08)
[2016-11-20] MEDS: Lactulose 20 Gm/30 mL 30 mL Syrup PO SCH ×3 (10:09→20:00)
--- NOTE | 2016-11-20 11:12 | NUR ---
Evaluation completed. Please go to "Notes" then click on "Assessments and Notes" (bottom left corner of screen). Then select appropriate discipline tab on top of screen.
--- NOTE | 2016-11-20 11:25 | NUR ---
Case Managment- IMM explained and signed by . Copy given to . Original placed in chart. Keyla Rolle RN, CCM
--- NOTE | 2016-11-20 12:27 | PCM.PNMED ---
Subjective Date of Service Nov 20, 2016 Subjective Mentation improving. Elevated ammonia noted.patient also states she has on and off rectal bleeding sometimes hanna bleeding sometimes dark/tarry . She had bleeding from hemorrhoids and underwent surgery months ago but did not make any change. Exam Vital Signs Vital Sign - Last Date Time Temp Pulse Resp B/P Pulse Ox O2 Delivery O2 Flow Rate FiO2 11/20/16 11:47 18 92/58 Room Air 11/20/16 09:31 83 11/20/16 08:48 36.9 96 Intake and Output 11/19/16 11/19/16 11/20/16 Cumulative From/Thru 15:00 23:00 07:00 11/19/16 10:39 - 11/20/16 06:31 Intake Total 1000 ml 1679 ml 2679 ml Output Total 450 ml 1200 ml 1650 ml Balance 550 ml 479 ml 1029 ml Intake Oral 1107 ml 1107 ml IV Total 1000 ml 572 ml 1572 ml Output Urine Total 450 ml 1200 ml 1650 ml # Bowel Movements 1 1 Exam General: Elderly female sitting in bed and in no acute distress, tremulous well- developed, well-nourished, mild confusion. HEENT: Normocephalic, atraumatic. External ears without defect. Pupils equal, round, and reactive to light. Anicteric sclerae, moist conjunctivae, and no lid lag. Oropharynx free of erythema and cobble stoning. His membranes dry. Neck: Supple with full range of motion. No lymphadenopathy or thyromegaly. Cardiovascular: Regular rate and rhythm without murmurs, rubs, or gallops appreciated Pulmonary: Clear to auscultation bilaterally without crackles, wheezes, or rhonchi. Normal respiratory effort with no use of accessory muscles. Abdomen: Soft, nontender, nondistended, bowel sounds present. No hepatosplenomegaly or masses appreciated. Extremities: No clubbing or cyanosis. Trace edema to pretibial area bilaterally. Skin: Normal temperature, turgor, and texture; no rash, ulcers, or subcutaneous nodules appreciated. Neurological: Cranial nerves grossly intact. Generalized weakness without focal neurological deficit. Reflexes, coordination, and sensory function within normal limits. Known gait impairment and uses a cane or FWW. Psychiatric: Normal mood and affect. Alert and oriented to person, place, and time. . IVs and Medications Medications Reviewed: Medications were reviewed in detail Lab and Diagnostics Result Diagram: 11/20/16 0507 11/20/16 0507 Microbiology Blood cultures 2 pending. Urine culture pending. . X-Rays, CTs and MRIs X-RAY CHEST ONE VIEW, PORTABLE IMPRESSION: Mild acute exacerbation of chronic CHF pattern. Dictated by: Ketan Weiss M.D. on 11/19/2016 at 12:54 CT BRAIN TPA IMPRESSION: No acute disease, no contraindication to TPA administration found. This information was personally called to the emergency room at 10:47 a.m. This study fulfills neurological imaging criteria for inclusion or exclusion of acute stroke therapies based on available published neurological guidelines. Dictated by: Ketan Weiss M.D. on 11/19/2016 at 10:44 . 12-lead ECG EKG: Sinus rhythm, heart rate 84, left axis, prolonged QTC of 504 ms otherwise normal intervals, poor R-wave progression, left bundle branch block, peaked T waves in leads V3 and V4, no pathological Q waves or acute ischemic changes such as ST elevation or depression. . Assessment & Plan Vanessa Short is a 71-year-old female with past medical history significant for hypertension, hyperlipidemia, Winter, and diabetes mellitus type II, insulin using who presented to [facility] emergency Department via EMS due to confusion reported by her . #. Acute hepatic encephalopathy, present on admission. Active. - The patient presented with increased tremor, generalized weakness, and mildly slurred speech. - Likely due to hepatic encephalopathy due to WINTER cirrhosis . -started Lactulose 3 times a day.needs to be discharged on lactulose to titrate to 2-3 BMs/day - CT brain did not reveal any acute intracranial abnormalities, as above. -will do US to check for ascites . -consulted GI Dr José, tentatively planned to do endoscopy tomorrow - Held Benadryl 25 mg daily at bedtime as needed for insomnia and hydroxyzine 25 -50 mg every 4 hours as needed for itching due to DAY CARE HOME PROVIDER effect. # Anemia, acute on chronic - Hemoglobin drop noted, initial 11.5. Repeat 9.9 today. partly dilutional due to IV fluids. -She had significance varices and portal hypertension on CT scan in August 2016, will need surveillance endoscopy . -She will also gives history of on and off rectal bleeding which seems both upper and lower. she has both BRBPR and dark stool .may need colonoscopy if endoscopy is unrevealing # suspected GI bleed -workup as above -hold home ASA #. Acute kidney injury, present on admission. Resolved - Likely secondary to prerenal azotemia from dehydration. - Baseline creatinine 0.9. Initial creatinine 1.18. - Avoid nephrotoxic agents. - Received 1 L of NS in the ED. discontinued now Chronic problems: #. Hypothyroidism, present on admission. Stable. - Continue levothyroxine 225 g daily. #. Diabetes mellitus type II, insulin using, with complication of diabetic peripheral neuropathy present on admission. Stable. - Hemoglobin A1c pending. - Continue Lantus 80 units subcutaneous daily. - Ordered high-dose correctional scale insulin. - Ordered carbohydrate consistent/heart healthy diet. #. Hypertension, present on admission. Stable. - Continue losartan 100 mg daily. #. Non-alcoholic cirrhosis, present on admission. Stable. - Continue to monitor liver function daily. - #. Asthma/ COPD, present on admission. Stable. - Ordered AccuNeb every 4 hours as needed for shortness of breath #. GERD, present on admission. Stable. - Continue Protonix 40 mg daily. #. History of DVT -hold aspirin 81 mg daily. #. Restless leg syndrome, present on admission. Stable. - Continue Pramipexole 0.5-1 mg daily at bedtime. #. Osteoarthritis, present on admission. Stable. - Will hold oxycodone 5-10 mg every 4 hours as needed for pain due to encephalopathy. PRN antiemetics: Zofran and Maalox. PRN bowel regimen: Senna and MiraLAX. PRN analgesics: Tylenol. inpatient Possible discharge in 1-2 days. VTE Prophylaxis: Sub-Q Heparin (Unfractionated) Resuscitation Status: CPR: Attempt Resuscitation Castro Simpson MD Nov 20, 2016 12:27
--- NOTE | 2016-11-20 14:56 | DRSVH ---
[facility] [address] [place] [address] Echocardiogram Report Name: JAMES HAIR LStudy Date: 11/20/2016 Height: 65 in Hospital Exam Location: [facility] Weight: 243 lb Gender: Female BSA: 2.1 m2 : 1945 Age: 71 yrs BP: 143/50 mmHg Reason For Study: CVA Ordering Physician: Performed By: Chasity Medina Referring Physician: Franki Hamm Interpretation Summary Normal sinus rhythm. Normal LV size, wall thickness, wall motion and LV systolic function. EF is 60-65%. Mild LA enlargement. Otherwise normal chamber sizes. No significant valvular abnormalities. Agitated saline study shows PFO with evidence of right to left shunting, only during Valsalva maneuver. Compared to prior study 10/17/2015 PFO is newly documented. Procedure: A two-dimensional transthoracic echocardiogram with color flow and Doppler was performed. The study quality was technically adequate. Comparison is made with the echocardiogram of 10/17/2015. A saline contrast injection was performed to assess for cardiac shunting. The heart rate ranged between 63-77 bpm during the study. The patient had occasional PVCs during the exam. Left Ventricle: The left ventricle is normal in size, wall thickness, and systolic function without any focal wall motion abnormalities. The ejection fraction is estimated to be 60-65%. Assessment of diastolic parameters indicates normal left ventricular diastolic function and normal filling pressures. Right Ventricle: The right ventricle is normal in size and function. A calcified moderator band is seen in the right ventricle. Atria: The left atrium is mildly dilated. The right atrium is normal in size. Injection of contrast documented an interatrial shunt. Mitral Valve: The mitral valve is normal. There is trace mitral regurgitation. Aortic Valve: The aortic valve is normal in structure and function. No aortic regurgitation is present. Tricuspid Valve: The tricuspid valve is normal in structure and function. There is a trace or physiologic amount of tricuspid regurgitation. Pulmonic Valve: The pulmonic valve is normal in structure and function. There is trace pulmonic regurgitation. Great Vessels: The aortic root is normal size. The ascending aorta is normal in size. The aortic arch is normal in size. The pulmonary artery is normal size. The IVC is dilated (diameter is greater than 2.1 cm) and it collapses less than 50% with a sniff. This suggests a high right atrial pressure of 15 mm Hg. Pericardium/ Pleura There is no pericardial effusion. There is no pleural effusion. MMode/2D Measurements & Calculations LVIDd: 5.1 cm LVIDs: 3.2 cm LA A2 area: 23.1 cm FS: 36.4 % LA A4 area: 27.2 cm EPSS: 0.68 cm LA length (vol): 6.4 cm IVSd: 1.1 cm LA vol: 84.0 ml LVPWd: 1.0 cm LA vol index: 39.1 ml/m IVC diam: 2.5 cm RA long axis: 5.3 cm LVOT diam: 2.1 cm RA area: 16.3 cm AoV Openin.8 cm RA vol: 42.8 ml Ao root diam: 3.0 cm RA : 19.9 ml/m2 asc Aorta Diam: 3.6 cm Ao Arch Diam (Prox Trans): 2.2 cm LV cross. diameter/BSA (cm/m^2): 2.4 LV sys. diameter/BSA (cm/m^2): 1.5 RVD1 (basal): 3.7 cm TAPSE: 3.0 cm Doppler Measurements & Calculations Ao V2 max: 155.2 cm/sec MV E max christiano: 119.5 cm/sec Ao max P.6 mmHg MV A max christiano: 98.1 cm/sec Ao mean P.7 mmHg MV P1/2t: 61.4 msec LVOT Max Christiano: 102.6 cm/sec ZOE(I,D): 2.5 cm sev ratio: 0.70 MV E/A: 1.2 PA V2 max: 121.2 cm/sec Med Peak E' Christiano: 5.6 cm/sec PA mean P.2 mmHg E/E' med: 21.4 Lat Peak E' Christiano: 9.5 cm/sec E/E' lat: 12.5 E/e' average: 17.0 MV dec time: 0.20 sec MV P1/2t max christiano: 120.9 cm/sec MVA(P1/2t): 3.6 cm2 Ao V2 mean: 126.2 cm/sec LV V1 max P.2 mmHg Ao V2 VTI: 37.1 cm LV V1 VTI: 26.1 cm ZOE(V,D): 2.4 cm2 PA V2 mean: 85.6 cm/sec ZOE indexed to BSA (cm^2/m^2): 1.2 Reading Physician:02:55 PM
[2016-11-20] MEDS: diphenhydrAMINE 25 mg Capsule PO PRN (16:55)
--- NOTE | 2016-11-20 17:05 | NUR ---
Social Work: Initial Assessment Data: See initial assessment. Patient is a 71 year old female who was admitted on 11/19/16 for acute delirium per H&P. Patient's insurance is Medicare and [employer]. Patient's PCP is Silver Hamm MD. EMR reviewed. SW met with patient to discuss discharge planning. SW role explained. Patient states that she lives with her spouse and daughter in a 2 story home located in [place]. Patient confirms that she has plenty of family support. Patient confirms that her spouse is her DPOA and that AD have been completed on her behalf. Patient states that she is I at baseline with the assistance of a FWW and cane. Patient states that she is able to perform all of her ADLs and care needs. Patient confirms that she drives via POV. Patient denies having a hx of home health services or SNF. Patient denies having [facility] care insurance or [place] benefits. Upon discharge, transportation will be provided by spouse or another family member. SW provided patient with a discharge planning checklist booklet and encouraged to call with any questions or concerns. Phone number provided. SW will continue to follow. Assessment: Patient will likely discharge phone when medically stable. Plan: Patient will likely discharge home when medically stable. Transportation will be provided by family member. SW will continue to follow for needs. HERI Adamson Addendum: 11/20/16 at 1712 by RAJEEV REYES SS Amended: Links added.
--- NOTE | 2016-11-20 17:41 | DRSVH ---
PROCEDURE: US ABDOMEN INDICATIONS: cirrhosis TECHNIQUE: Real-time scanning was performed of the abdominal and retroperitoneal organs, with image documentatio n. COMPARISON: [facility] Ultrasound, US, US ABDOMEN, 06/07/2016, 8:37. FINDINGS: Liver length: 18.46 cm Spleen length: 16.05 cm Right kidney length: 13.56 cm Left kidney length: 12.28 cm Aorta(Proximal): 2.21 cm Aorta(Mid): 1.61 cm Aorta(Distal): 1.25 cm Liver: Liver is diffusely coarse, heterogeneous and nodular in appearance. No discrete focal hepatic abnormality seen. Gallbladder: Post cholecystectomy. Biliary ducts: Intrahepatic bile ducts are non-dilated. Extrahepatic bile duct caliber is not visua lized. Pancreas: Visualized portions of the pancreas are sonographically normal. Spleen: Spleen is enlarged in size and homogeneous in echotexture. Kidneys: Kidneys are normal in size and echotexture. No hydronephrosis or nephrolithiasis. No julito d masses. Aorta: Visualized aorta is normal in caliber at less than 3 cm. Iliacs: Not well-seen. IVC: Intrahepatic inferior vena cava is patent. Miscellaneous: No free abdominal fluid. Doppler assessment is limited secondary to the coarse and a ttenuated liver parenchyma. Within these limits there may be retrograde flow in the right portal vei n and the main portal vein is not visualized and the splenic vein is suboptimally imaged. IMPRESSION: 1. Cirrhotic liver. No discrete liver mass is identified. 2. Limited evaluation of the portal vasculature demonstrates possible hepatofugal flow within the rig ht portal vein. The main portal vein as well as the splenic vein are suboptimally visualized. 3. Splenomegaly compatible with portal hypertension. Dictated by: Nate Mahoney [facility] Interpreted: Nilson Dhaliwal MD on 11/20/2016 at 16:24 Approved by: Nilson Dhaliwal M.D. on 11/20/2016 at 17:39
--- NOTE | 2016-11-20 19:15 | PCM.HPMED ---
Subjective Date of Service Nov 20, 2016 Primary Provider: Admitting Physician: Castro Simpson MD Primary Care Physician: Silver Hamm MD Attending Physician: Castro Simpson MD Chief Complaint: Encephalopathy. . History of Present Illness: Vanessa Short is a 71-year-old female with past medical history significant for hypertension, hyperlipidemia, Winter, and diabetes mellitus type II, insulin using who presented to [facility] emergency Department via EMS due to confusion reported by her . Patients reports long history of dark black stools and bright red blood on toilet paper. Patient reports being scheduled for endoscopy in the past, but canceled. She is followed by Dr. José on an outpatient basis. Patient has been admitted for hepatic encephalopathy, and possible Upper and lower GI bleed. Patient reports feeling well at the moment. Denies fever, chills, nausea, vomiting, abdominal pain, dizziness, syncope, hematemesis, constipation, dysuria. Review of Systems: A comprehensive review of systems was conducted with the patient and found to be negative except as above in the History of Present Illness. Allergies Coded Allergies: Wheat (Verified Allergy, Severe, rash, 11/19/16) gluten (Verified Allergy, Severe, Rash/ irritable bowel, 11/19/16) nadolol (Verified Allergy, Severe, WHEEZING/ASTHMA, 11/19/16) propoxyphene (Verified Allergy, Severe, 11/19/16) Hallucinations atorvastatin (Verified Allergy, Intermediate, myalgia, 11/19/16) gabapentin (Verified Allergy, Mild, dizziness, 11/19/16) clarithromycin (Verified Allergy, Unknown, 11/19/16) Pt unsure of reaction to this medication naproxen (Verified Allergy, Unknown, HALLUCINATES, 11/19/16) rofecoxib (Verified Allergy, Unknown, 11/19/16) Sulfa (Sulfonamide Antibiotics) (Verified Adverse Reaction, Intermediate, itching, 11/19/16) acetaminophen (Verified Adverse Reaction, Intermediate, insomnia, 11/19/16) meperidine (Verified Adverse Reaction, Intermediate, FEELS "BUGS", 11/19/16 ) morphine (Verified Adverse Reaction, Intermediate, FEELS "BUGS", 11/19/16) clindamycin (Verified Adverse Reaction, Mild, n/v, 11/19/16) lisinopril (Verified Adverse Reaction, Mild, cough, 11/19/16) pravastatin (Verified Adverse Reaction, Mild, leg and arm cramps, 11/19/16) pregabalin (Verified Adverse Reaction, Mild, weird dreams, 11/19/16) simvastatin (Verified Adverse Reaction, Mild, myalgia, 11/19/16) Home Medications Albuterol 2 puffs every 4 hours as needed for shortness of breath. Aspirin 81 mg daily. Benadryl 25 mg daily at bedtime as needed for insomnia. Hydroxyzine 25-50 mg every 4 hours as needed for itching. Nexium 40 mg daily. Lantus 80 units subcutaneous daily. Lispro 35 units subcutaneous 3 times a day with meals. Levothyroxine 225 g daily. Losartan 100 mg daily. Oxycodone 5-10 mg every 4 hours as needed for pain. Pramipexole 0.5-1 mg daily at bedtime. . PMH 1. Hypothyroidism. 2. Diabetes mellitus type II, insulin using. 3. Hypertension. 4. Abdominal abscess status post incision and drainage. 5. History of breast cancer status post left mastectomy. 6. History of pneumonia. 7. History of DVT. 8. History of MRSA . 9. Non-alcoholic cirrhosis. 10. DJD. 11. Asthma/ COPD. 12. GERD. 13. Restless leg syndrome. 14. Osteoarthritis. . Surgical History 1. Left mastectomy for breast cancer and reconstruction with donor site from abdomen. 2. Knee replacement x2 3. Laparoscopic cholecystectomy. 4. Abdominal abscess with incision and drainage in December 2010. 5. Bilateral cataract extraction. 6. Hysterectomy with bilateral salpingo-oophorectomy. 7. Tonsillectomy. 8. Appendectomy. 9. Cholecystectomy. . Family History Mother who had dementia and of renal failure. Father who is alive at 94 years old and healthy. Sister who had CVA but otherwise is healthy. . Social History Hx Alcohol Use: No Hx Substance Use: Yes (marijuana CBD capsules once in awhile) Hx Tobacco Use: Yes (1 ppd QUIT 2007 (smoked for at least 15 years)) Smoking Status: Former Smoker Exam Vital Signs Vital Sign - Last Date Time Temp Pulse Resp B/P Pulse Ox O2 Delivery O2 Flow Rate FiO2 11/20/16 16:43 36.7 71 162/71 98 Room Air 11/20/16 12:23 20 Intake and Output 11/19/16 11/19/16 11/20/16 Cumulative From/Thru 15:00 23:00 07:00 11/19/16 10:39 - 11/20/16 06:31 Intake Total 1000 ml 1679 ml 2679 ml Output Total 450 ml 1200 ml 1650 ml Balance 550 ml 479 ml 1029 ml Intake Oral 1107 ml 1107 ml IV Total 1000 ml 572 ml 1572 ml Output Urine Total 450 ml 1200 ml 1650 ml # Bowel Movements 1 1 Exam General: Elderly female sitting in bed and in no acute distress, no longer tremulous ,well-developed, well-nourished, HEENT: Normocephalic, atraumatic. External ears without defect. Pupils equal, round, and reactive to light. Anicteric sclerae, moist conjunctivae, and no lid lag. Oropharynx free of erythema and cobble stoning. His membranes dry. Neck: Supple with full range of motion. No lymphadenopathy or thyromegaly. Cardiovascular: Regular rate and rhythm without murmurs, rubs, or gallops appreciated Pulmonary: Clear to auscultation bilaterally without crackles, wheezes, or rhonchi. Normal respiratory effort with no use of accessory muscles. Abdomen: Soft, nontender, nondistended, bowel sounds present. No hepatosplenomegaly or masses appreciated. Extremities: No clubbing or cyanosis. Trace edema to pretibial area bilaterally. Skin: Normal temperature, turgor, and texture; no rash, ulcers, or subcutaneous nodules appreciated. Neurological: Cranial nerves grossly intact. Generalized weakness without focal neurological deficit. Reflexes, coordination, and sensory function within normal limits. Known gait impairment and uses a cane or FWW. Psychiatric: Normal mood and affect. Alert and oriented to person, place, and time. . Lab and Diagnostics Result Diagram: 11/20/16 05011/20/16 050 Microbiology Blood cultures 2 pending. Urine culture pending. . X-Rays, CTs and MRIs X-RAY CHEST ONE VIEW, PORTABLE IMPRESSION: Mild acute exacerbation of chronic CHF pattern. Dictated by: Ketan Weiss M.D. on 11/19/2016 at 12:54 CT BRAIN TPA IMPRESSION: No acute disease, no contraindication to TPA administration found. This information was personally called to the emergency room at 10:47 a.m. This study fulfills neurological imaging criteria for inclusion or exclusion of acute stroke therapies based on available published neurological guidelines. Dictated by: Ketan Weiss M.D. on 11/19/2016 at 10:44 . 12-lead ECG EKG: Sinus rhythm, heart rate 84, left axis, prolonged QTC of 504 ms otherwise normal intervals, poor R-wave progression, left bundle branch block, peaked T waves in leads V3 and V4, no pathological Q waves or acute ischemic changes such as ST elevation or depression. . Assessment & Plan Vanessa Short is a 71-year-old female with past medical history significant for hypertension, hyperlipidemia, Winter, and diabetes mellitus type II, insulin using who presented to [facility] emergency Department via EMS due to confusion reported by her and found to be anemic. Currently patient is being treated for hepatic encephalopathy, and possible Upper and lower GI bleed. #. Acute hepatic encephalopathy - Likely due to hepatic encephalopathy due to WINTER cirrhosis . - Continue Lactulose 3 times a day.needs to be discharged on lactulose to titrate to 2-3 BMs/day - CT brain did not reveal any acute intracranial abnormalities, as above. - Ammonia - US to check for ascites. - NPO after midnight. - Endoscopy tomorrow, possible colonoscopy as well ~ 1230. # Anemia, acute on chronic - Hemoglobin drop noted, initial 11.5. Repeat 9.9 today. - She will also gives history of on and off rectal bleeding which seems both upper and lower. - BRBPR and dark stool. May need colonoscopy if endoscopy is unrevealing # Suspected GI bleed - workup as above - hold home ASA #. Acute kidney injury, present on admission. Chronic problems: #. Non-alcoholic cirrhosis, present on admission. Stable. - Continue to monitor liver function daily. #. GERD, present on admission. Stable. - Continue Protonix 40 mg daily. #. Hypothyroidism, present on admission. Stable. #. Diabetes mellitus type II, insulin using, with complication of diabetic peripheral neuropathy present on admission. Stable. #. Hypertension, present on admission. Stable. #. Asthma/ COPD, present on admission. Stable. #. History of DVT #. Restless leg syndrome, present on admission. Stable. #. Osteoarthritis, present on admission. Stable. Pain Evaluation: Adequate Pain Control VTE Prophylaxis: Sub-Q Heparin (Unfractionated) Resuscitation Status: CPR: Attempt Resuscitation Attending Statement Patient seen and examined. Agree with assessment and plan as described by Dr Hameed. Improved with lactulose. I suspect an element of low grade upper gi bleeding. EGD tomorrow. Will then ultimately need outpatient colon to survey colon for polyps and re-evaluate the BRBPR sx's. SONYA HAMEED DO Nov 20, 2016 16:58 Arnaldo José MD Nov 20, 2016 22:46
[2016-11-21] VITALS (12 sets, daily range): BP systolic 81–182; BP diastolic 41–95; PULSE 63–83; RESP 14–19; O2SAT 93–98
[2016-11-21 07:43] LABS: BASOPHILS % (AUTO) 0.9 % (0-3); EOSINOPHILS % (AUTO) 3.6 % (0-5); MONOCYTES % (AUTO) 9.6 % (4-12); Mean Corpuscular Hemoglobin 31.9 pg (27.0-35.0); Mean Corpuscular Volume 94.8 fL (81-100); NEUTROPHILS % (AUTO) 65.3 % (40-74); Platelet Count 136 bil/L (150-400)
[2016-11-21] MEDS: Insulin LISPRO 300 Unit/3 mL Inj SUBQ SCH ×4 (08:00→20:43)
[2016-11-21] MEDS: Pantoprazole 40 mg ER24 Tablet PO SCH (08:12)
[2016-11-21] MEDS: Insulin GLARgine 100 Unit/mL Syringe SUBQ SCH (08:16)
[2016-11-21] MEDS: Lactulose 20 Gm/30 mL 30 mL Syrup PO SCH ×3 (08:19→20:30)
[2016-11-21 08:34] LABS: Magnesium 1.6 mg/dL (1.6-2.6)
[2016-11-21] MEDS ORDERED: Propofol 10,000 mCg/mL 20 mL Inj ONE (11:10)
--- NOTE | 2016-11-21 13:10 | NUR ---
Social Work-readiness for discharge/multidisciplinary rounds: Data:EMR reviewed. Pt is on day 2 of hospitalization for acute delirium per H&P. Pt is not medically stable for discharge anticipate 1-2 more days. Pt resides at home with her daughter and PT/OT have cleared pt for home no needs. No anticipated discharge needs. SW will continue to follow if needs arise. Assessment:Pt who is independent at baseline. Plan:Pt to discharge home when medically stable via POV. No anticipated discharge needs. SW will continue to follow if needs arise. HERI Aparicio
--- NOTE | 2016-11-21 13:11 | PCM.PNMED ---
Subjective Date of Service Nov 21, 2016 Exam Vital Signs Vital Sign - Last Date Time Temp Pulse Resp B/P Pulse Ox O2 Delivery O2 Flow Rate FiO2 11/21/16 12:20 36.4 72 18 145/60 97 Room Air Intake and Output 11/20/16 11/20/16 11/21/16 Cumulative From/Thru 15:00 23:00 07:00 11/19/16 10:39 - 11/21/16 06:45 Intake Total 406 ml 950 ml 760 ml 4795 ml Output Total 400 ml 2050 ml Balance 406 ml 550 ml 760 ml 2745 ml Intake Oral 950 ml 760 ml 2817 ml IV Total 406 ml 1978 ml Output Urine Total 400 ml 2050 ml # Voids 4 5 9 # Bowel Movements 1 4 3 9 Exam General: Elderly female sitting in bed and in no acute distress, tremulous well- developed, well-nourished, oriented x3 HEENT: Normocephalic, atraumatic. External ears without defect. Pupils equal, round, and reactive to light. Anicteric sclerae, moist conjunctivae, and no lid lag. Oropharynx free of erythema and cobble stoning. His membranes dry. Neck: Supple with full range of motion. No lymphadenopathy or thyromegaly. Cardiovascular: Regular rate and rhythm without murmurs, rubs, or gallops appreciated Pulmonary: Clear to auscultation bilaterally without crackles, wheezes, or rhonchi. Normal respiratory effort with no use of accessory muscles. Abdomen: Soft, nontender, nondistended, bowel sounds present. No hepatosplenomegaly or masses appreciated. Extremities: No clubbing or cyanosis. Trace edema to pretibial area bilaterally. Skin: Normal temperature, turgor, and texture; no rash, ulcers, or subcutaneous nodules appreciated. Neurological: Cranial nerves grossly intact. Generalized weakness without focal neurological deficit. Reflexes, coordination, and sensory function within normal limits. Known gait impairment and uses a cane or FWW. Psychiatric: Normal mood and affect. Alert and oriented to person, place, and time. . IVs and Medications Medications Reviewed: Medications were reviewed in detail Lab and Diagnostics Result Diagram: 11/21/16 0732 11/21/16 0732 Microbiology Blood cultures 2 pending. Urine culture pending. . X-Rays, CTs and MRIs X-RAY CHEST ONE VIEW, PORTABLE IMPRESSION: Mild acute exacerbation of chronic CHF pattern. Dictated by: Ketan Weiss M.D. on 11/19/2016 at 12:54 CT BRAIN TPA IMPRESSION: No acute disease, no contraindication to TPA administration found. This information was personally called to the emergency room at 10:47 a.m. This study fulfills neurological imaging criteria for inclusion or exclusion of acute stroke therapies based on available published neurological guidelines. Dictated by: Ketan Weiss M.D. on 11/19/2016 at 10:44 .PROCEDURE: US ABDOMEN INDICATIONS: cirrhosis IMPRESSION: 1. Cirrhotic liver. No discrete liver mass is identified. 2. Limited evaluation of the portal vasculature demonstrates possible hepatofugal flow within the right portal vein. The main portal vein as well as the splenic vein are suboptimally visualized. 3. Splenomegaly compatible with portal hypertension. Dictated by: Nate Mahoney [facility] Interpreted: Nilson Dhaliwal MD on 11/20/2016 at 16:24 12-lead ECG EKG: Sinus rhythm, heart rate 84, left axis, prolonged QTC of 504 ms otherwise normal intervals, poor R-wave progression, left bundle branch block, peaked T waves in leads V3 and V4, no pathological Q waves or acute ischemic changes such as ST elevation or depression. . Cardiac Echo Impressions Interpretation Summary Normal sinus rhythm. Normal LV size, wall thickness, wall motion and LV systolic function. EF is 60-65%. Mild LA enlargement. Otherwise normal chamber sizes. No significant valvular abnormalities. Agitated saline study shows PFO with evidence of right to left shunting, only during Valsalva maneuver. Compared to prior study 10/17/2015 PFO is newly documented. Assessment & Plan Vanessa Short is a 71-year-old female with past medical history significant for hypertension, hyperlipidemia, Winter, and diabetes mellitus type II, insulin using who presented to [facility] emergency Department via EMS due to confusion reported by her . #. Acute hepatic encephalopathy, present on admission. resolved - The patient presented with increased tremor, generalized weakness, and mildly slurred speech. - due to hepatic encephalopathy due to WINTER cirrhosis . -started Lactulose 3 times a day.needs to be discharged on lactulose to titrate to 2-3 BMs/day - CT brain did not reveal any acute intracranial abnormalities, as above. - US shows cirrhosis and portal hypertension -consulted GI Dr José, tentatively planned to do endoscopy today # Anemia, acute on chronic - Hemoglobin drop noted, initial 11.5. Repeat 9.9 . partly dilutional due to IV fluids. -She had significance varices and portal hypertension on CT scan in August 2016, will need surveillance endoscopy . -She also gives history of on and off rectal bleeding which seems both upper and lower. she has both BRBPR and dark stool .may need colonoscopy if endoscopy is unrevealing # suspected GI bleed -workup as above -hold home ASA #. Acute kidney injury, present on admission. Resolved - Likely secondary to prerenal azotemia from dehydration. - Baseline creatinine 0.9. Initial creatinine 1.18. - Avoid nephrotoxic agents. - Received 1 L of NS in the ED. discontinued now # Asymptomatic UTI -Urine culture growing Enterococcus faecalis.will treat with levaquin for 3 days given initial confusion/AMS on presentation. Chronic problems: #. Non-alcoholic cirrhosis, present on admission. Stable. - Continue to monitor liver function daily. -no ascites ,no need for diuretics -Never had surveillance endoscopy but has varices on CT.will get EGD today #. Hypothyroidism, present on admission. Stable. - Continue levothyroxine 225 g daily. #. Diabetes mellitus type II, insulin using, with complication of diabetic peripheral neuropathy present on admission. Stable. - Hemoglobin A1c pending. - Continue Lantus 80 units subcutaneous daily. - Ordered high-dose correctional scale insulin. - Ordered carbohydrate consistent/heart healthy diet. #. Hypertension, present on admission. Stable. - Continue losartan 100 mg daily. #. Asthma/ COPD, present on admission. Stable. - Ordered AccuNeb every 4 hours as needed for shortness of breath #. GERD, present on admission. Stable. - Continue Protonix 40 mg daily. #. History of DVT -hold aspirin 81 mg daily. #. Restless leg syndrome, present on admission. Stable. - Continue Pramipexole 0.5-1 mg daily at bedtime. #. Osteoarthritis, present on admission. Stable. - Will hold oxycodone 5-10 mg every 4 hours as needed for pain due to encephalopathy. PRN antiemetics: Zofran and Maalox. PRN bowel regimen: Senna and MiraLAX. PRN analgesics: Tylenol. inpatient Possible discharge tomorrow VTE Prophylaxis: Sub-Q Heparin (Unfractionated) Resuscitation Status: CPR: Attempt Resuscitation Castro Simpson MD Nov 21, 2016 13:11
--- NOTE | 2016-11-21 13:17 | NUR ---
Pt off unit Patient off unit at 1315 to Endoscopy by appointment. Transferred via gurney by endoscopy PCT.
--- NOTE | 2016-11-21 15:31 | ENDO ---
[address] [address] ENDOSCOPY PROCEDURE PATIENT: JAMES HAIR : 1945 MR#: [id number] ADMIT: 11/19/2016 JOB ID: [id number] DATE: 11/21/2016 PROCEDURE: Esophagogastroduodenoscopy with esophageal band ligation of varices. INDICATIONS: A 71-year-old female with a history of cirrhosis who demonstrates obvious portal hypertension. She has experienced an anemia and has heme-positive stools. There is a description of some dark stools in the preceding weeks but no active upper GI bleed. Her hepatic encephalopathy is improved with lactulose. EGD is pursued today to evaluate for varices. Of note, she has an allergy listed for NADOLOL. EQUIPMENT: GIF H 180 J. SEDATION: Monitored anesthesia as provided by Dr. Edgard Taylor. COMPLICATIONS: None identified. PROCEDURAL INFORMATION: After the risks and benefits were explained, written and verbal informed consent was obtained. The patient was brought into the endoscopy suite and placed into the left lateral decubitus position. Sedation was achieved using the above-stated medications with the addition of oxygen via nasal cannula. The scope was introduced into the mouth through the bite block, and advanced under direct visualization to the second portion of the duodenum. The scope was slowly withdrawn. Retroflexed views were accomplished in the stomach. The stomach was decompressed. The scope removed from the patient. A decision had been made to pursue banding in light of her beta-mayo allergy. The seven shooter banding device was connected to the scope. We then re-entered the esophagus. A first attempt at banding in the 3 o'clock column of varices down in the distal 5 cm segment of esophagus failed. The band did not deploy after numerous attempts. We removed the endoscope to inspect the gas specialist and attempted once again to deploy bands. Finally with turning the knob we fired one off into the water at the bedside. In that it seemed functional, we readvanced the endoscope back down into position in the 3 o'clock location. In the latter 5 cm segment of the esophagus, we placed a band successfully around a large variceal cushion. No hemorrhagic complications identified. Upstream perhaps about 3 cm in that same column, which was fairly impressive, we placed a second band. No other areas in the distal esophagus appeared to require banding. We thereafter removed the endoscope from the patient who tolerated the procedure well. FINDINGS: 1. Duodenum: No ulcers, mass lesions or significant mucosal pathology. No sign of any recent bleeding. 2. Stomach: No ulcers, no outlet obstruction. No mass lesions apparent. There was a bile-stained small amount of gastric fluid. No new or old blood apparent. Diffuse portal hypertensive gastropathy was seen, but I did not appreciate any gastric varices including retroflexed views of the LES. 3. Esophagus: The squamocolumnar junction correlated with the top of the gastric folds. The GEJ was at about 38 cm from the incisors. In the 3 o'clock column, the varices would be considered quite large. There were no stigmata of recent bleeding and I did not appreciate any high risk areas. We, however, pursued prophylactic banding in this location in that the patient has an allergy to NADOLOL on her chart. She tolerated this quite well. ENDOSCOPIC DIAGNOSIS: Gastroduodenopathy. 1. Large distal esophageal varices status post banding x2. 2. Portal hypertensive gastropathy. RECOMMENDATIONS: 1. Full liquid diet x24 hours. 2. Then smoothie diet for 48 hours thereafter. 3. Then diet can be advanced to extremely well chewed food. 4. I would recommend continued therapy for the patient's hepatic encephalopathy with lactulose titrating the dose so that the patient has two or three bowel movements per day and continue to monitor her ongoing cognitive capacity. 5. Repeat esophagogastroduodenoscopy with anesthesia in about four weeks time. It would perhaps be prudent to do a combination procedure at that time, i.e., both EGD and colonoscopy in that she is currently overdue for her colon polyp surveillance. 6. I will be away from the hospital tomorrow. If there are any concerning clinical changes, please contact Dr. Barahona who will be application consultant for the GI service.
[2016-11-21] MEDS: levoFLOXacin 250 mg Tablet PO SCH (15:46)
--- NOTE | 2016-11-21 15:50 | NUR ---
Pt returned to unit Pt returned to unit from appt with endoscopy via gurney accompanied by lip reading teacher. Appears well, no complaints regarding procedure.
[2016-11-21] MEDS: diphenhydrAMINE 25 mg Capsule PO PRN ×2 (16:14→23:01)
--- NOTE | 2016-11-21 18:28 | NUR ---
EGD Followup Report received from animal warden indicated successful EGD procedure with no noted complications. Patient was reported as having intact swallow and gag reflex w/o aspiration during immediate post-anesthesia period. Patient arrived back from endoscopy at 1550 and found to have matching condition and was eager to advance diet. All fluid diet was provided as ordered and patient remained vitally and neurologically stable during remainder of shift.
[2016-11-22] VITALS (9 sets, daily range): BP systolic 163–183; BP diastolic 68–75; PULSE 77–91; RESP 14–18; O2SAT 79–97
[2016-11-22] MEDS: Ondansetron 2 mg/mL 2 mL Inj IVPUSH PRN ×3 (01:24→08:14)
--- NOTE | 2016-11-22 06:29 | NUR ---
bloating/activity/diet Pt had episodes of nausea and retching, "it feels like a have a bubble in my stomach". had small bile emesis; mostly thick, clear sputum. Zofran given x2 - effective. pt also has intermittent posttussive emesis. SBA to the BR with FWW. gait steady. able to make needs known. Pt is on full liquid diet x24hrs after esophageal varices banding. Pt c/o being hungry and had to be reminded of her current diet. tolerating full liquid diet.
[2016-11-22] MEDS: Insulin LISPRO 300 Unit/3 mL Inj SUBQ SCH ×4 (09:09→22:00)
[2016-11-22] MEDS: Pantoprazole 40 mg ER24 Tablet PO SCH (09:09)
[2016-11-22] MEDS: Lactulose 20 Gm/30 mL 30 mL Syrup PO SCH ×3 (09:10→21:07)
[2016-11-22] MEDS: Insulin GLARgine 100 Unit/mL Syringe SUBQ SCH (09:11)
[2016-11-22 10:56] LABS: Mean Corpuscular Volume 94.2 fL (81-100)
--- NOTE | 2016-11-22 11:04 | PCM.PNMED ---
Subjective Date of Service Nov 22, 2016 Juliana Short is a 71-year-old female with past medical history significant for hypertension, hyperlipidemia, Winter, and diabetes mellitus type II, insulin using who presented to [facility] emergency Department via EMS due to confusion reported by her . Patients reports long history of dark black stools and bright red blood on toilet paper. Patient reports being scheduled for endoscopy in the past, but canceled. She is followed by Dr. José on an outpatient basis. Patient has been admitted for hepatic encephalopathy, and possible Upper and lower GI bleed. Patient reports feeling well but still "groggy" from the procedure yesterday evening. She reports a "difficult evening" due to overnight nausea and one episode of clear vomitus. Both have not since recurred. She reports 1 stool overnight but doesn't remember the color or consistency. Denies fever, chills, nausea, vomiting, abdominal pain, dizziness, syncope, hematemesis, constipation , dysuria. Exam Vital Signs Vital Sign - Last Date Time Temp Pulse Resp B/P Pulse Ox O2 Delivery O2 Flow Rate FiO2 11/22/16 09:34 36.9 83 18 171/68 95 Room Air 11/21/16 14:44 2 Intake and Output 11/21/16 11/21/16 11/22/16 Cumulative From/Thru 15:00 23:00 07:00 11/19/16 10:39 - 11/22/16 06:41 Intake Total 720 ml 1340 ml 6855 ml Output Total 2050 ml Balance 720 ml 1340 ml 4805 ml Intake Oral 720 ml 1340 ml 4877 ml IV Total 1978 ml Output Urine Total 2050 ml # Voids 3 6 18 # Bowel Movements 3 5 17 Exam General: Elderly female sitting in bed and in no acute distress, no longer tremulous ,well-developed, well-nourished, HEENT: Normocephalic, atraumatic. External ears without defect. Pupils equal, round, and reactive to light. Anicteric sclerae, moist conjunctivae, and no lid lag. Oropharynx free of erythema and cobble stoning. His membranes dry. Neck: Supple with full range of motion. No lymphadenopathy or thyromegaly. Cardiovascular: Regular rate and rhythm without murmurs, rubs, or gallops appreciated Pulmonary: Clear to auscultation bilaterally without crackles, wheezes, or rhonchi. Normal respiratory effort with no use of accessory muscles. Abdomen: Soft, nontender, nondistended, bowel sounds present. No hepatosplenomegaly or masses appreciated. Extremities: No clubbing or cyanosis. Trace edema to pretibial area bilaterally. Skin: Normal temperature, turgor, and texture; no rash, ulcers, or subcutaneous nodules appreciated. Neurological: Cranial nerves grossly intact. Generalized weakness without focal neurological deficit. Reflexes, coordination, and sensory function within normal limits. Known gait impairment and uses a cane or FWW. Psychiatric: Normal mood and affect. Alert and oriented to person, place, and time. . IVs and Medications Medications Reviewed: Medications were reviewed in detail Lab and Diagnostics Result Diagram: 11/22/16 0911/22/16 09 Microbiology Blood cultures 2 pending. Urine culture pending. . X-Rays, CTs and MRIs X-RAY CHEST ONE VIEW, PORTABLE IMPRESSION: Mild acute exacerbation of chronic CHF pattern. Dictated by: Ketan Weiss M.D. on 11/19/2016 at 12:54 CT BRAIN TPA IMPRESSION: No acute disease, no contraindication to TPA administration found. This information was personally called to the emergency room at 10:47 a.m. This study fulfills neurological imaging criteria for inclusion or exclusion of acute stroke therapies based on available published neurological guidelines. Dictated by: Ketan eWiss M.D. on 11/19/2016 at 10:44 .PROCEDURE: US ABDOMEN INDICATIONS: cirrhosis IMPRESSION: 1. Cirrhotic liver. No discrete liver mass is identified. 2. Limited evaluation of the portal vasculature demonstrates possible hepatofugal flow within the right portal vein. The main portal vein as well as the splenic vein are suboptimally visualized. 3. Splenomegaly compatible with portal hypertension. Dictated by: Nate Mahoney RRA Interpreted: Nilson Dhaliwal MD on 11/20/2016 at 16:24 12-lead ECG EKG: Sinus rhythm, heart rate 84, left axis, prolonged QTC of 504 ms otherwise normal intervals, poor R-wave progression, left bundle branch block, peaked T waves in leads V3 and V4, no pathological Q waves or acute ischemic changes such as ST elevation or depression. . Cardiac Echo Impressions Interpretation Summary Normal sinus rhythm. Normal LV size, wall thickness, wall motion and LV systolic function. EF is 60-65%. Mild LA enlargement. Otherwise normal chamber sizes. No significant valvular abnormalities. Agitated saline study shows PFO with evidence of right to left shunting, only during Valsalva maneuver. Compared to prior study 10/17/2015 PFO is newly documented. Assessment & Plan Vanessa Short is a 71-year-old female with past medical history significant for hypertension, hyperlipidemia, Winter, and diabetes mellitus type II, insulin using who presented to [facility] emergency Department via EMS due to confusion reported by her and found to be anemic. Currently patient is being treated for hepatic encephalopathy, and possible Upper and lower GI bleed. #. Acute hepatic encephalopathy - Likely due to hepatic encephalopathy due to WINTER cirrhosis . - Continue Lactulose 3 times a day.needs to be discharged on lactulose to titrate to 2-3 BMs/day - CT brain did not reveal any acute intracranial abnormalities, as above. # Anemia, acute on chronic - Hemoglobin drop noted, initial 11.5. Repeat 9.9 today. - She will also gives history of on and off rectal bleeding which seems both upper and lower. - BRBPR and dark stool. # Suspected GI bleed - hold home ASA ENDOSCOPIC DIAGNOSIS: Gastroduodenopathy. 1. Large distal esophageal varices status post banding x2. 2. Portal hypertensive gastropathy. RECOMMENDATIONS: 1. Full liquid diet x24 hours. 2. Then smoothie diet for 48 hours thereafter. 3. Then diet can be advanced to extremely well chewed food. 4. I would recommend continued therapy for the patient's hepatic encephalopathy with lactulose titrating the dose so that the patient has two or three bowel movements per day and continue to monitor her ongoing cognitive capacity. 5. Repeat esophagogastroduodenoscopy with anesthesia in about four weeks time. It would perhaps be prudent to do a combination procedure at that time, i.e., both EGD and colonoscopy in that she is currently overdue for her colon polyp surveillance. 6. I will be away from the hospital tomorrow. If there are any concerning clinical changes, please contact Dr. Barahona who will be aviation consultant for the GI service. #. Acute kidney injury Chronic problems: #. Non-alcoholic cirrhosis - Continue to monitor liver function daily. #. GERD - Continue Protonix 40 mg daily. #. Hypothyroidism #. Diabetes mellitus type II, insulin using, with complication of diabetic peripheral neuropathy #. Hypertension #. Asthma/ COPD #. History of DVT #. Restless leg syndrome #. Osteoarthritis VTE Prophylaxis: Sub-Q Heparin (Unfractionated) Resuscitation Status: CPR: Attempt Resuscitation Attending Statement agree with resident physician note above. SONYA BLUE DO Nov 22, 2016 11:02 Mahin Barahona MD Nov 23, 2016 16:05
--- NOTE | 2016-11-22 11:32 | PCM.PNMED ---
Subjective Date of Service Nov 22, 2016 Subjective underwent endoscopy and banding of 2 esophageal varices. Had one episode of vomiting this morning. non bloody. She states she feels hungry because of the liquid diet Exam Vital Signs Vital Sign - Last Date Time Temp Pulse Resp B/P Pulse Ox O2 Delivery O2 Flow Rate FiO2 11/22/16 09:34 36.9 83 18 171/68 95 Room Air 11/21/16 14:44 2 Intake and Output 11/21/16 11/21/16 11/22/16 Cumulative From/Thru 15:00 23:00 07:00 11/19/16 10:39 - 11/22/16 06:41 Intake Total 720 ml 1340 ml 6855 ml Output Total 2050 ml Balance 720 ml 1340 ml 4805 ml Intake Oral 720 ml 1340 ml 4877 ml IV Total 1978 ml Output Urine Total 2050 ml # Voids 3 6 18 # Bowel Movements 3 5 17 IVs and Medications Medications Reviewed: Medications were reviewed in detail Lab and Diagnostics Result Diagram: 11/22/16 0900 11/22/16 0900 Microbiology Blood cultures 2 pending. Urine culture pending. . X-Rays, CTs and MRIs X-RAY CHEST ONE VIEW, PORTABLE IMPRESSION: Mild acute exacerbation of chronic CHF pattern. Dictated by: Ketan Weiss M.D. on 11/19/2016 at 12:54 CT BRAIN TPA IMPRESSION: No acute disease, no contraindication to TPA administration found. This information was personally called to the emergency room at 10:47 a.m. This study fulfills neurological imaging criteria for inclusion or exclusion of acute stroke therapies based on available published neurological guidelines. Dictated by: Ketan Weiss M.D. on 11/19/2016 at 10:44 .PROCEDURE: US ABDOMEN INDICATIONS: cirrhosis IMPRESSION: 1. Cirrhotic liver. No discrete liver mass is identified. 2. Limited evaluation of the portal vasculature demonstrates possible hepatofugal flow within the right portal vein. The main portal vein as well as the splenic vein are suboptimally visualized. 3. Splenomegaly compatible with portal hypertension. Dictated by: Nate Mahoney RRA Interpreted: Nilson Dhaliwal MD on 11/20/2016 at 16:24 12-lead ECG EKG: Sinus rhythm, heart rate 84, left axis, prolonged QTC of 504 ms otherwise normal intervals, poor R-wave progression, left bundle branch block, peaked T waves in leads V3 and V4, no pathological Q waves or acute ischemic changes such as ST elevation or depression. . Cardiac Echo Impressions Interpretation Summary Normal sinus rhythm. Normal LV size, wall thickness, wall motion and LV systolic function. EF is 60-65%. Mild LA enlargement. Otherwise normal chamber sizes. No significant valvular abnormalities. Agitated saline study shows PFO with evidence of right to left shunting, only during Valsalva maneuver. Compared to prior study 10/17/2015 PFO is newly documented. Additional Diagnostics DATE: 11/21/2016 PROCEDURE: Esophagogastroduodenoscopy with esophageal band ligation of varices. FINDINGS: 1. Duodenum: No ulcers, mass lesions or significant mucosal pathology. No sign of any recent bleeding. 2. Stomach: No ulcers, no outlet obstruction. No mass lesions apparent. There was a bile-stained small amount of gastric fluid. No new or old blood apparent. Diffuse portal hypertensive gastropathy was seen, but I did not appreciate any gastric varices including retroflexed views of the LES. 3. Esophagus: The squamocolumnar junction correlated with the top of the gastric folds. The GEJ was at about 38 cm from the incisors. In the 3 o'clock column, the varices would be considered quite large. There were no stigmata of recent bleeding and I did not appreciate any high risk areas. We, however, pursued prophylactic banding in this location in that the patient has an allergy to NADOLOL on her chart. She tolerated this quite well. ENDOSCOPIC DIAGNOSIS: Gastroduodenopathy. 1. Large distal esophageal varices status post banding x2. 2. Portal hypertensive gastropathy. RECOMMENDATIONS: 1. Full liquid diet x24 hours. 2. Then smoothie diet for 48 hours thereafter. 3. Then diet can be advanced to extremely well chewed food. 4. I would recommend continued therapy for the patient's hepatic encephalopathy with lactulose titrating the dose so that the patient has two or three bowel movements per day and continue to monitor her ongoing cognitive capacity. 5. Repeat esophagogastroduodenoscopy with anesthesia in about four weeks time. It would perhaps be prudent to do a combination procedure at that time, i.e., both EGD and colonoscopy in that she is currently overdue for her colon polyp surveillance. 6. I will be away from the hospital tomorrow. If there are any concerning clinical changes, please contact Dr. Barahona who will be carpentry professional for the GI service. Arnaldo José MD 11/21/16 2007 Assessment & Plan Vanessa Short is a 71-year-old female with past medical history significant for hypertension, hyperlipidemia, Winter, and diabetes mellitus type II, insulin using who presented to [facility] emergency Department via EMS due to confusion reported by her . #. Acute hepatic encephalopathy, present on admission. resolved - The patient presented with increased tremor, generalized weakness, and mildly slurred speech. - due to hepatic encephalopathy due to WINTER cirrhosis . -started Lactulose 3 times a day.needs to be discharged on lactulose to titrate to 2-3 BMs/day - CT brain did not reveal any acute intracranial abnormalities, as above. - US shows cirrhosis and portal hypertension -consulted GI Dr José, tentatively planned to do endoscopy today # Anemia, acute on chronic - Hemoglobin drop noted, initial 11.5. Repeat 9.9 . partly dilutional due to IV fluids. -She had significance varices and portal hypertension on CT scan in August 2016, -EGD 11/21: Large distal esophageal varices status post banding x2.Portal hypertensive gastropathy. Repeat endoscopy in 4 weeks recommended. Advance diet slowly per GI recommendation -She also gives history of on and off rectal bleeding which seems both upper and lower. she has both BRBPR and dark stool . colonoscopy may be done in 4 weeks together with the repeat EGD # suspected GI bleed -workup as above -hold home ASA #. Acute kidney injury, present on admission. Resolved - Likely secondary to prerenal azotemia from dehydration. - Baseline creatinine 0.9. Initial creatinine 1.18. - Avoid nephrotoxic agents. - Received 1 L of NS in the ED. discontinued now # Asymptomatic UTI -Urine culture growing Enterococcus faecalis.will treat with levaquin for 3 days given initial confusion/AMS on presentation.will discontinue tomorrow Chronic problems: #. Non-alcoholic cirrhosis, present on admission. Stable. - Continue to monitor liver function daily. -no ascites ,no need for diuretics -Never had surveillance endoscopy but has varices on CT.will get EGD today #. Hypothyroidism, present on admission. Stable. - Continue levothyroxine 225 g daily. #. Diabetes mellitus type II, insulin using, with complication of diabetic peripheral neuropathy present on admission. Stable. - Hemoglobin A1c pending. - Continue Lantus 80 units subcutaneous daily. - Ordered high-dose correctional scale insulin. - Ordered carbohydrate consistent/heart healthy diet. #. Hypertension, present on admission. Stable. - Continue losartan 100 mg daily. #. Asthma/ COPD, present on admission. Stable. - Ordered AccuNeb every 4 hours as needed for shortness of breath #. GERD, present on admission. Stable. - Continue Protonix 40 mg daily. #. History of DVT -hold aspirin 81 mg daily. #. Restless leg syndrome, present on admission. Stable. - Continue Pramipexole 0.5-1 mg daily at bedtime. #. Osteoarthritis, present on admission. Stable. - Will hold oxycodone 5-10 mg every 4 hours as needed for pain due to encephalopathy. PRN antiemetics: Zofran and Maalox. PRN bowel regimen: Senna and MiraLAX. PRN analgesics: Tylenol. inpatient Possible discharge tomorrow VTE Prophylaxis: Sub-Q Heparin (Unfractionated) Resuscitation Status: CPR: Attempt Resuscitation Castro Simpson MD Nov 22, 2016 11:32
[2016-11-22] MEDS: levoFLOXacin 250 mg Tablet PO SCH (13:07)
--- NOTE | 2016-11-22 15:57 | NUR ---
spiritual care: pt request Visited with pt who has a strong gabriel. Pt requested prayer. Prayed with pt and offered a blessing. Spiritual care will continue to follow as needed.
--- NOTE | 2016-11-22 18:03 | NUR ---
N/V, Bowel care Patient had several episodes throughout shift of nausea with scant to no emesis present. PRN IV ondansetron was provided initially but patient reported the dose was ineffective in relieving nausea or retching symptoms. Patient reported meals were effective in reducing nausea and additional diet appropriate snacks were provided to limited effectiveness. Additional doses of PRN ondansetron were refused. Patient reported two bowel movements during shift. Both were small to medium, soft, brown, with no hanna blood present. Teaching on lactulose administration and titration to 2-3 bowel movements per day was reinforced.
[2016-11-23 00:33] VITALS: BP 133/69; PULSE 83; RESP 16; O2SAT 96
[2016-11-23 05:08] VITALS: BP 144/71; PULSE 79; RESP 16; O2SAT 95
--- NOTE | 2016-11-23 05:10 | NUR ---
Stable overnight Pt c/o mild nausea due to "did not eat food yet", "hungry" at the beginning of the shift, no emesis, no need Zofran when offered to pt, chicken broth provided per pt preference, educate pt the rationale of "smoothie diet" is prevent bleeding r/o esophageal varices, pt verbalizes understanding, cooperative with care. Nausea resolved gradually. Pt had a total of 8 BM yesterday during dayshift, "formed, brown, no blood" per pt, no BM overnight after Lactulose given at HS, but lots of gas per pt. Denies abdominal pain. Alert and orientedx4, BP 174/75 at pm, recheck 133/69. Denies any pain/SOB/Fever/chills. Care ongoing.
[2016-11-23 06:01] VITALS: PULSE 79
[2016-11-23] MEDS: Pantoprazole 40 mg ER24 Tablet PO SCH (06:02)
[2016-11-23] MEDS: Lactulose 20 Gm/30 mL 30 mL Syrup PO SCH (08:30)
[2016-11-23] MEDS: Insulin GLARgine 100 Unit/mL Syringe SUBQ SCH (09:15)
[2016-11-23] MEDS: Insulin LISPRO 300 Unit/3 mL Inj SUBQ SCH (09:16)
--- NOTE | 2016-11-23 09:17 | PCM.DIMED ---
Discharge Instructions Date of Service Nov 23, 2016 Dates of Hospitalization Nov 19, 2016 at 15:23 Discharge Diagnosis Discharge Diagnosis #. Acute hepatic encephalopathy, present on admission. resolved # Anemia, acute on chronic # esophageal varice s/p banding on 11/21 #. Acute kidney injury, present on admission. Resolved # Asymptomatic UTI, treated and resolved Chronic problems: #. Non-alcoholic cirrhosis, present on admission. Stable. #. Hypothyroidism, present on admission. Stable. #. Diabetes mellitus type II, insulin using, with complication of diabetic peripheral neuropathy present on admission. Stable. #. Hypertension, present on admission. Stable. #. Asthma/ COPD, present on admission. Stable. #. GERD, present on admission. Stable. #. History of DVT #. Restless leg syndrome, present on admission. Stable. #. Osteoarthritis, present on admission. Stable. Diet Discharge Diet: Low fat, Low Sodium Activity Discharge Activity: Limited until seen by PCP Call your provider Call your provider for: Fever or Chills, Shortness of breath, Bleeding, Chest pain, Vomitting, Excessive diarrhea, Weakness (unilateral) Patient Instructions Patient Instructions # You were hospitalized due to hepatic encephalopathy.You were treated with lactulose and mentation improved. Please take lactulose 30ml 2-3 times a day and titrate to 2-3 bowel movements a day. # You were noted to have anemia and underwent endoscopy. You have esophageal varices banding applied. Aspirin is discontinued. Aspirin is not safe for you for now. You will need repeat endoscopy in [address] vasquez is planning to do routine screening colonoscopy as well at that time. Please follow-up with Dr. Vasquez in 4 weeks. Continue with smoothie diet for 24 more hours and advance as tolerated Follow-up Provider: Harleen Ferrell MD Follow-up with PCP in: 1 week Provider: Arnaldo Vasquez MD Follow-up in: 3 weeks Castro Simpson MD Nov 23, 2016 09:17
[2016-11-23 09:48] VITALS: BP 156/70; PULSE 75; RESP 20; O2SAT 95
[2016-11-23] MEDS ORDERED: LACT10SO60 PO (10:28)
--- NOTE | 2016-11-23 11:11 | NUR ---
Discharge Patient discharge to home with all belongings at 1111. Explained to patient new medication (Lactolose), when next medications are due and discharge instructions. Patient verbalized understanding. Dc'd IV intact. Dc'd telemetry. Vitals stable. Patient left floor via wheelchair accompanied by daughter and MANAGER WIRELESS with no signs of distress.
--- NOTE | 2016-11-23 16:20 | NUR ---
Social Work Note: Discharge Data& Assessment: Per in multidisciplinary rounds pt is medically ready for discharge. Vanessa Short is a 71 year old female admitted on 11/19/2016 for acute delirium. Per MD pt is medically improved and ready for discharge. PT/OT/ and ST have all cleard pt to return home without any additional needs. No other MD orders identified. No other pt needs identified. MD does not identify any concerns for pt capacity for self care at this time. Pt discharge home with via pt daughter. Plan: Per pt is medically ready to discharge home via POV. No other MD orders or pt needs identified. HERI Salomon
--- NOTE | 2016-11-23 23:30 | PCM.DC.MED ---
Discharge Summary Date of Service Nov 23, 2016 Dates of Hospitalization Date of Hospital Admission Nov 19, 2016 at 15:23 Date of Discharge: Nov 23, 2016 Providers: Admitting Physician: Castro Pan MD Primary Care Physician: Silver Hamm MD Attending Physician: Castro Pan MD Diagnosis at Time of Discharge Diagnosis at Time of Discharge #. Acute hepatic encephalopathy, present on admission. resolved # Anemia, acute on chronic # esophageal varice s/p banding on 11/21 #. Acute kidney injury, present on admission. Resolved # Asymptomatic UTI, treated and resolved Chronic problems: #. Non-alcoholic cirrhosis, present on admission. Stable. #. Hypothyroidism, present on admission. Stable. #. Diabetes mellitus type II, insulin using, with complication of diabetic peripheral neuropathy present on admission. Stable. #. Hypertension, present on admission. Stable. #. Asthma/ COPD, present on admission. Stable. #. GERD, present on admission. Stable. #. History of DVT #. Restless leg syndrome, present on admission. Stable. #. Osteoarthritis, present on admission. Stable. Procedures XRay, CTs & MRIs X-RAY CHEST ONE VIEW, PORTABLE IMPRESSION: Mild acute exacerbation of chronic CHF pattern. Dictated by: Ketan Weiss M.D. on 11/19/2016 at 12:54 CT BRAIN TPA IMPRESSION: No acute disease, no contraindication to TPA administration found. This information was personally called to the emergency room at 10:47 a.m. This study fulfills neurological imaging criteria for inclusion or exclusion of acute stroke therapies based on available published neurological guidelines. Dictated by: Ketan Weiss M.D. on 11/19/2016 at 10:44 .PROCEDURE: US ABDOMEN INDICATIONS: cirrhosis IMPRESSION: 1. Cirrhotic liver. No discrete liver mass is identified. 2. Limited evaluation of the portal vasculature demonstrates possible hepatofugal flow within the right portal vein. The main portal vein as well as the splenic vein are suboptimally visualized. 3. Splenomegaly compatible with portal hypertension. Dictated by: Nate Mahoney RRA Interpreted: Nilson Dhaliwal MD on 11/20/2016 at 16:24 ECG 12 Lead EKG: Sinus rhythm, heart rate 84, left axis, prolonged QTC of 504 ms otherwise normal intervals, poor R-wave progression, left bundle branch block, peaked T waves in leads V3 and V4, no pathological Q waves or acute ischemic changes such as ST elevation or depression. . Cardiac Echo Impression Interpretation Summary Normal sinus rhythm. Normal LV size, wall thickness, wall motion and LV systolic function. EF is 60-65%. Mild LA enlargement. Otherwise normal chamber sizes. No significant valvular abnormalities. Agitated saline study shows PFO with evidence of right to left shunting, only during Valsalva maneuver. Compared to prior study 10/17/2015 PFO is newly documented. Other Diagnostics DATE: 11/21/2016 PROCEDURE: Esophagogastroduodenoscopy with esophageal band ligation of varices. FINDINGS: 1. Duodenum: No ulcers, mass lesions or significant mucosal pathology. No sign of any recent bleeding. 2. Stomach: No ulcers, no outlet obstruction. No mass lesions apparent. There was a bile-stained small amount of gastric fluid. No new or old blood apparent. Diffuse portal hypertensive gastropathy was seen, but I did not appreciate any gastric varices including retroflexed views of the LES. 3. Esophagus: The squamocolumnar junction correlated with the top of the gastric folds. The GEJ was at about 38 cm from the incisors. In the 3 o'clock column, the varices would be considered quite large. There were no stigmata of recent bleeding and I did not appreciate any high risk areas. We, however, pursued prophylactic banding in this location in that the patient has an allergy to NADOLOL on her chart. She tolerated this quite well. ENDOSCOPIC DIAGNOSIS: Gastroduodenopathy. 1. Large distal esophageal varices status post banding x2. 2. Portal hypertensive gastropathy. RECOMMENDATIONS: 1. Full liquid diet x24 hours. 2. Then smoothie diet for 48 hours thereafter. 3. Then diet can be advanced to extremely well chewed food. 4. I would recommend continued therapy for the patient's hepatic encephalopathy with lactulose titrating the dose so that the patient has two or three bowel movements per day and continue to monitor her ongoing cognitive capacity. 5. Repeat esophagogastroduodenoscopy with anesthesia in about four weeks time. It would perhaps be prudent to do a combination procedure at that time, i.e., both EGD and colonoscopy in that she is currently overdue for her colon polyp surveillance. 6. I will be away from the hospital tomorrow. If there are any concerning clinical changes, please contact Dr. Barahona who will be preparation center coordinator for the GI service. Arnaldo José MD 11/21/16 5728 Brief History per HPI Vanessa Short is a 71-year-old female with past medical history significant for hypertension, hyperlipidemia, Winter, and diabetes mellitus type II, insulin using who presented to [facility] emergency Department via EMS due to confusion reported by her . Patients reports long history of dark black stools and bright red blood on toilet paper. Patient reports being scheduled for endoscopy in the past, but canceled. She is followed by Dr. José on an outpatient basis. Patient has been admitted for hepatic encephalopathy, and possible Upper and lower GI bleed. Patient reports feeling well at the moment. Denies fever, chills, nausea, vomiting, abdominal pain, dizziness, syncope, hematemesis, constipation, dysuria. Hospital Course Vanessa Short is a 71-year-old female with past medical history significant for hypertension, hyperlipidemia, Winter, and diabetes mellitus type II, insulin using who presented to [facility] emergency Department via EMS due to confusion reported by her . #. Acute hepatic encephalopathy, present on admission. resolved - The patient presented with increased tremor, generalized weakness, and mildly slurred speech. - due to hepatic encephalopathy due to WINTER cirrhosis . -started Lactulose 3 times a day. discharged on lactulose to titrate to 2-3 BMs /day - CT brain did not reveal any acute intracranial abnormalities, as above. - US shows cirrhosis and portal hypertension -consulted GI Dr José # Anemia, acute on chronic - Hemoglobin drop noted, initial 11.5. Repeat 9.9 . partly dilutional due to IV fluids. -She had significance varices and portal hypertension on CT scan in August 2016, -EGD 11/21: Large distal esophageal varices status post banding x2.Portal hypertensive gastropathy. Repeat endoscopy in 4 weeks recommended. Advance diet slowly per GI recommendation -She also gives history of on and off rectal bleeding which seems both upper and lower. she has both BRBPR and dark stool . colonoscopy may be done in 4 weeks together with the repeat EGD # suspected GI bleed -workup as above -discontinue home ASA,she takes it for history of DVT and no real indication #. Acute kidney injury, present on admission. Resolved - Likely secondary to prerenal azotemia from dehydration. - Baseline creatinine 0.9. Initial creatinine 1.18. - Received 1 L of NS in the ED. discontinued now # Asymptomatic UTI -Urine culture growing Enterococcus faecalis.will treat with levaquin for 3 days given initial confusion/AMS on presentation. discontinue on discharge Chronic problems: #. Non-alcoholic cirrhosis, present on admission. Stable. - Continue to monitor liver function daily. -no ascites ,no need for diuretics -Never had surveillance endoscopy but has varices on CT.will get EGD today #. Hypothyroidism, present on admission. Stable. - Continue levothyroxine 225 g daily. #. Diabetes mellitus type II, insulin using, with complication of diabetic peripheral neuropathy present on admission. Stable. - Hemoglobin A1c pending. - Continue Lantus 80 units subcutaneous daily. #. Hypertension, present on admission. Stable. - Continue losartan 100 mg daily. #. Asthma/ COPD, present on admission. Stable. - Ordered AccuNeb every 4 hours as needed for shortness of breath #. GERD, present on admission. Stable. - Continue Protonix 40 mg daily. #. History of DVT -hold aspirin 81 mg daily. #. Restless leg syndrome, present on admission. Stable. - Continue Pramipexole 0.5-1 mg daily at bedtime. #. Osteoarthritis, present on admission. Stable. - Will hold oxycodone 5-10 mg every 4 hours as needed for pain due to encephalopathy. discharged home condition stable Exam Vital Signs (Last) Date Time Temp Pulse Resp B/P Pulse Ox O2 Delivery O2 Flow Rate FiO2 11/23/16 09:48 36.7 75 20 156/70 95 Room Air 11/21/16 14:44 2 Exam General: Elderly female sitting in bed and in no acute distress, tremulous well- developed, well-nourished, oriented x3 HEENT: Normocephalic, atraumatic. External ears without defect. Pupils equal, round, and reactive to light. Anicteric sclerae, moist conjunctivae, and no lid lag. Oropharynx free of erythema and cobble stoning. His membranes dry. Neck: Supple with full range of motion. No lymphadenopathy or thyromegaly. Cardiovascular: Regular rate and rhythm without murmurs, rubs, or gallops appreciated Pulmonary: Clear to auscultation bilaterally without crackles, wheezes, or rhonchi. Normal respiratory effort with no use of accessory muscles. Abdomen: Soft, nontender, nondistended, bowel sounds present. No hepatosplenomegaly or masses appreciated. Extremities: No clubbing or cyanosis. Trace edema to pretibial area bilaterally. Skin: Normal temperature, turgor, and texture; no rash, ulcers, or subcutaneous nodules appreciated. Neurological: Cranial nerves grossly intact. Generalized weakness without focal neurological deficit. Reflexes, coordination, and sensory function within normal limits. Known gait impairment and uses a cane or FWW. Psychiatric: Normal mood and affect. Alert and oriented to person, place, and time. . Test 11/19/16 10:30 11/19/16 11:41 11/19/16 11:50 11/19/16 17:17 Erythrocyte Sedimentation Rate 68mm/hr (0-40) Activated Partial Thromboplast Time 26.0sec (22.8-33.0) Hemoglobin A1c 7.0% (4.8-5.6) Phosphorus Level 3.5mg/dL (2.5-4.9) Troponin T 0.026ug/L (0.0-0.011) Pro-B-Type Natriuretic Peptide 14.57pg/mL (0-301) Triglycerides Level 113mg/dL (0-149) Cholesterol Level 243mg/dL (100-199) LDL Cholesterol, Calculated 154.400mg/dL (0-99) VLDL Cholesterol 22.600mg/dL HDL Cholesterol 66mg/dL (>39) Cholesterol/HDL Ratio 3.68 (0.0-4.4) Lipase 110U/L (13-60) Procalcitonin 0.14ng/mL (0.00-0.08) Urine Color Yellow (YELLOW) Urine Appearance Cloudy (CLEAR,HAZY) Urine pH 7.0 (5.0-8.0) Urine Specific [place] 1.015 (1.003-1.035) Urine Protein Tracemg/dL (NEG,TRACE) Urine Glucose (UA) Negativemg/dL (NEGATIVE) Urine Ketones Negativemg/dL (NEGATIVE) Urine Occult Blood Negative (NEGATIVE) Urine Nitrite Positive (NEGATIVE) Urine Bilirubin Negative (NEGATIVE) Urine Urobilinogen 4.0mg/dL (NORMAL) Urine Leukocyte Esterase Negative (NEGATIVE) Urine RBC 0-2/hpf (0-2) Urine WBC 0-5/hpf (0-5) Urine Epithelial Cells Occasional/hpf (NONE-MOD) Urine Crystals None seen (NONE SEEN) Urine Bacteria Many/hpf (NONE-FEW) Urine Hyaline Casts None/lpf (NONE) Urine Granular Casts None seen (NONE SEEN) Urine Waxy Casts None seen (NONE SEEN) Urine Red Blood Cell Casts None seen (NONE SEEN) Urine White Blood Cell Casts None seen (NONE SEEN) Urine Mucus None seen (None Seen) Urine Trichomonas None seen (NONE SEEN) Urine Yeast None (NONE SEEN) Urinalysis Comment None Urine Culture Reflexed Indicated Urine Opiates Screen Negative Urine Methadone Screen Negative Urine Barbiturates Screen Negative Urine Amphetamines Screen Negative Urine Benzodiazepines Screen Negative Urine Cocaine Metabolite Screen Negative Urine Cannabinoids Screen Negative Lactic Acid Level 1.2mmol/L (0.4-2.0) Alcohols < 10mg/dL (0-10) Test 11/21/16 07:32 11/22/16 09:00 Neutrophils (%) (Auto) 65.3% (40-74) Lymphocytes (%) (Auto) 20.3% (14-46) Monocytes (%) (Auto) 9.6% (4-12) Eosinophils (%) (Auto) 3.6% (0-5) Basophils (%) (Auto) 0.9% (0-3) Prothrombin Time 10.7sec (8.1-12.5) Prothromb Time International Ratio 1.00ratio Magnesium Level 1.6mg/dL (1.6-2.6) Ammonia 124ug/dL (18-53) White Blood Count 7.2th/mm3 (3.8-10.1) Red Blood Count 3.59mil/mm3 (3.90-5.20) Hemoglobin 11.5g/dL (12.0-15.6) Hematocrit 33.8% (35.0-46.0) Mean Corpuscular Volume 94.2fL (81-100) Mean Corpuscular Hemoglobin 32.0pg (27.0-35.0) Mean Corpuscular Hemoglobin Concent 34.0% (32.0-37.0) Red Cell Distribution Width 14.2% (12.3-15.4) Platelet Count 124bil/L (150-400) Sodium Level 131mEq/L (134-144) Potassium Level 4.7mEq/L (3.5-5.2) Chloride Level 96mEq/L (97-108) Carbon Dioxide Level 21mmol/L (18-29) Blood Urea Nitrogen 13mg/dL (8-27) Creatinine 0.84mg/dL (0.57-1.00) Estimat Glomerular Filtration Rate 95mL/min (>59) Glucose Level 222mg/dL (60-99) Calcium Level 9.1mg/dL (8.5-10.1) Total Bilirubin 1.3mg/dL (0.0-1.2) Aspartate Amino Transf (AST/SGOT) 64U/L (0-50) Alanine Aminotransferase (ALT/SGPT) 36U/L (0-32) Alkaline Phosphatase 100U/L (25-165) Total Protein 7.7g/dL (6.4-8.4) Albumin 3.4g/dL (3.4-5.0) Microbiology Results Blood cultures 2 pending. Urine culture pending. . Discharge Medications Discharge Medications Esomeprazole Magnesium (Nexium) 40 Mg Capsule.dr 40 MG PO DAILY (Reported) Insulin Glargine (Lantus U100 Solostar Insulin Pen) 100 Unit/1 Ml Insuln.pen 80 UNIT SUBQ DAILY (Reported) Insulin Lispro (Humalog Kwikpen) 200 Unit/Ml (3 Ml) Insuln.pen 35 UNIT SQ TIDWM (Reported) Lactulose (Lactulose) 20 Gm/30 Ml Solution 20 GM PO TID Prescribed by: CASTRO PAN MD Levothyroxine (Levothyroxine) 200 Mcg Tablet 200 MCG PO DAILY (Reported) In addition to 25mcg for a total of 225 mcg Levothyroxine (Levothyroxine) 25 Mcg Tablet 25 MCG PO DAILY (Reported) In addition to 200mcg for a total of 225 mcg Losartan Potassium (Losartan Potassium) 100 Mg Tablet 100 MG PO DAILY (Reported ) Pramipexole Dihydrochloride (Mirapex) 0.5 Mg Tablet 0.5-1 MG PO HS (Reported) As needed Albuterol Sulfate (Proair Respiclick) 90 Mcg Aer.pow.ba 2 PUFFS IH Q4-6Hrs PRN PRN For Shortness of Breath (Reported) diphenhydrAMINE HCl (Benadryl) 25 Mg Capsule 25 MG PO HS PRN PRN (Reported) hydrOXYzine Hcl (HydrOXYzine Hcl) 25 Mg Tablet 25-50 MG PO Q4Hrs PRN PRN For Itching (Reported) oxyCODONE (oxyCODONE) 5 Mg Capsule 5-10 MG PO Q4Hrs PRN PRN For Pain (Reported) Followup Plan Disposition: home Discharge Diet: Low fat, Low Sodium Discharge Activity: Limited until seen by PCP Patient Instructions # You were hospitalized due to hepatic encephalopathy.You were treated with lactulose and mentation improved. Please take lactulose 30ml 2-3 times a day and titrate to 2-3 bowel movements a day. # You were noted to have anemia and underwent endoscopy. You have esophageal varices banding applied. Aspirin is discontinued. Aspirin is not safe for you for now. You will need repeat endoscopy in [address] josé is planning to do routine screening colonoscopy as well at that time. Please follow-up with Dr. José in 4 weeks. Continue with smoothie diet for 24 more hours and advance as tolerated Follow-up Provider: Harleen Ferrell MD Follow-up with PCP in: 1 week Provider: Arnaldo José MD Follow-up in: 3 weeks Time spent 35 minutes coordinating discharge and counselling on [facility] copies to: Harleen Ferrell MD; Arnaldo José MD, Melaku MD Nov 23, 2016 23:30
== END 2016-11-23 11:11 | disposition home or self-care (01) | DRG 442 ==
LOC: SED 10:22 → MPC 15:23 → OBSVTOIN 15:23
PROVIDERS: ADMIT Internal Medicine; ATTEND Internal Medicine
PROC: 06L34CZ Occlusion of Esophageal Vein with Extraluminal Device, Percutaneous Endoscopic Approach (ICD-10-PCS; principal; 2016-11-21 12:30)
DX: K72.00 Acute and subacute hepatic failure without coma (principal); N39.0 Urinary tract infection, site not specified; I85.00 Esophageal varices without bleeding; N17.8 Other acute kidney failure; R58 Hemorrhage, not elsewhere classified; B95.2 Enterococcus as the cause of diseases classified elsewhere; Z79.82 Long term (current) use of aspirin; Z79.4 Long term (current) use of insulin; R29.715 NIHSS score 15; Z87.891 Personal history of nicotine dependence; Z86.718 Personal history of other venous thrombosis and embolism; Z86.14 Personal history of Methicillin resistant Staphylococcus aureus infection; Z85.3 Personal history of malignant neoplasm of breast; Z90.12 Acquired absence of left breast and nipple; K75.81 Nonalcoholic steatohepatitis (NASH); E03.9 Hypothyroidism, unspecified; E11.40 Type 2 diabetes mellitus with diabetic neuropathy, unspecified; I10 Essential (primary) hypertension; J44.9 Chronic obstructive pulmonary disease, unspecified; K21.9 Gastro-esophageal reflux disease without esophagitis; G25.81 Restless legs syndrome; M19.90 Unspecified osteoarthritis, unspecified site; D64.9 Anemia, unspecified; B96.89 Other specified bacterial agents as the cause of diseases classified elsewhere